=== PATIENT | male | born 1965 | race Caucasian/White ===

== ENCOUNTER 2020-08-14 07:29 | Outpatient (REF) | payer OTHER, SELFPAY ==
[2020-08-14 08:35] LABS: Hematocrit 24.6 % (42-52); Hemoglobin 7.4 g/dl (14.0-18.0); Mean Corpuscular HGB Conc 30.1 g/dl (31.0-36.0); Mean Corpuscular Hemoglobin 26.6 pg (27.0-33.0); Mean Corpuscular Volume 88.5 fL (80-98); Mean Platelet Volume 12.4 fL (9.4-12.4); Platelet Count 206 X10*3/uL (160-400); Red Blood Count 2.78 X10*6/uL (4.60-5.80); Red Cell Distribution Width 17.1 % (11.0-16.0); White Blood Count 8.1 X10*3/uL (4.8-10.8)
[2020-08-14 10:10] LABS: Alanine Aminotransferase 15 U/L (0-40); Albumin Level 2.8 g/dL (3.5-5.0); Alkaline Phosphatase 96 U/L (39-117); Anion Gap 12 (12-20); Aspartate Amino Transferase 12 U/L (5-37); Bilirubin Total 0.4 mg/dL (0.0-1.0); Blood Urea Nitrogen 34 mg/dL (9-16); Calcium 7.3 mg/dL (8.4-10.2); Carbon Dioxide 30 mmol/L (22-29); Chloride 99 mmol/L (96-108); Estimated Glomerular Filt Rate 9; Glucose Random 84 mg/dL (60-115); Potassium 3.8 mmol/L (3.3-5.1); Sodium 137 mmol/L (135-145); Total Protein 5.3 g/dL (6.5-8.0)
== END 2020-08-14 07:30 | disposition home or self-care (01) ==
LOC: HO.MMNH1L 07:29
PROVIDERS: Visit Provider Family Medicine
DX: Z86.73 Personal history of transient ischemic attack (TIA), and cerebral infarction without residual deficits (principal)
CPT/HCPCS: 36415; 80053; 85027

== ENCOUNTER 2020-08-18 10:36 | Outpatient (REF) | payer OTHER, SELFPAY ==
[2020-08-18 07:55] LABS: Hematocrit 24.8 % (42-52); Hemoglobin 7.5 g/dl (14.0-18.0); Mean Corpuscular HGB Conc 30.2 g/dl (31.0-36.0); Mean Corpuscular Hemoglobin 26.9 pg (27.0-33.0); Mean Corpuscular Volume 88.9 fL (80-98); Mean Platelet Volume 11.4 fL (9.4-12.4); Platelet Count 172 X10*3/uL (160-400); Red Blood Count 2.79 X10*6/uL (4.60-5.80); Red Cell Distribution Width 17.7 % (11.0-16.0); White Blood Count 6.6 X10*3/uL (4.8-10.8)
[2020-08-18 09:06] LABS: Anion Gap 13 (12-20); Blood Urea Nitrogen 25 mg/dL (9-16); Calcium 7.4 mg/dL (8.4-10.2); Carbon Dioxide 28 mmol/L (22-29); Chloride 101 mmol/L (96-108); Estimated Glomerular Filt Rate 11; Glucose Random 65 mg/dL (60-115); Potassium 3.3 mmol/L (3.3-5.1); Sodium 139 mmol/L (135-145)
== END 2020-08-18 10:37 | disposition home or self-care (01) ==
LOC: HO.MMNH1L 10:36
PROVIDERS: Visit Provider Family Medicine
DX: I63.9 Cerebral infarction, unspecified (principal)
CPT/HCPCS: 36415; 80048; 85027

== ENCOUNTER 2020-08-25 00:36 | Outpatient (REF) | payer OTHER, SELFPAY ==
[2020-08-25 08:09] LABS: Hematocrit 26.5 % (42-52); Hemoglobin 7.9 g/dl (14.0-18.0); Mean Corpuscular HGB Conc 29.8 g/dl (31.0-36.0); Mean Corpuscular Hemoglobin 26.5 pg (27.0-33.0); Mean Corpuscular Volume 88.9 fL (80-98); Mean Platelet Volume 10.8 fL (9.4-12.4); Platelet Count 129 X10*3/uL (160-400); Red Blood Count 2.98 X10*6/uL (4.60-5.80); Red Cell Distribution Width 17.3 % (11.0-16.0); White Blood Count 6.3 X10*3/uL (4.8-10.8)
[2020-08-25 09:03] LABS: Anion Gap 13 (12-20); Blood Urea Nitrogen 25 mg/dL (9-16); Calcium 7.1 mg/dL (8.4-10.2); Carbon Dioxide 29 mmol/L (22-29); Chloride 101 mmol/L (96-108); Estimated Glomerular Filt Rate 9; Glucose Random 89 mg/dL (60-115); Potassium 3.2 mmol/L (3.3-5.1); Sodium 140 mmol/L (135-145)
== END 2020-08-25 00:37 | disposition home or self-care (01) ==
LOC: HO.MMNH1L 00:36
PROVIDERS: Visit Provider Family Medicine
DX: Z86.73 Personal history of transient ischemic attack (TIA), and cerebral infarction without residual deficits (principal)
CPT/HCPCS: 36415; 80048; 85027

== ENCOUNTER 2020-09-01 01:07 | Outpatient (REF) | payer OTHER, SELFPAY ==
[2020-09-01 06:50] LABS: Hematocrit 26.3 % (42-52); Mean Corpuscular HGB Conc 30.4 g/dl (31.0-36.0); Mean Corpuscular Hemoglobin 27.1 pg (27.0-33.0); Mean Corpuscular Volume 89.2 fL (80-98); Mean Platelet Volume 10.5 fL (9.4-12.4); Platelet Count 156 X10*3/uL (160-400); Red Blood Count 2.95 X10*6/uL (4.60-5.80); Red Cell Distribution Width 17.1 % (11.0-16.0); White Blood Count 5.8 X10*3/uL (4.8-10.8)
[2020-09-01 08:42] LABS: Anion Gap 13 (12-20); Blood Urea Nitrogen 21 mg/dL (9-16); Carbon Dioxide 29 mmol/L (22-29); Chloride 99 mmol/L (96-108); Estimated Glomerular Filt Rate 10; Glucose Random 84 mg/dL (60-115); Potassium 3.2 mmol/L (3.3-5.1); Sodium 138 mmol/L (135-145)
[2020-09-01 08:53] LABS: Calcium 7.2 mg/dL (8.4-10.2)
== END 2020-09-01 01:08 | disposition home or self-care (01) ==
LOC: HO.MMNH1L 01:07
PROVIDERS: Visit Provider Family Medicine
DX: Z86.73 Personal history of transient ischemic attack (TIA), and cerebral infarction without residual deficits (principal)
CPT/HCPCS: 36415; 80048; 85027

== ENCOUNTER 2020-09-04 05:37 | Inpatient (IN) | payer OTHER, SELFPAY ==
[2020-09-04] VITALS (11 sets, daily range): BP systolic 132–195; BP diastolic 64–109; PULSE 65–86; RESP 10–20; TEMP 35.3–37.1; O2SAT 90–98; BMI 25.0
--- NOTE | 2020-09-04 | ECG_ITS ---
Test Reason : UNRESPONSIVE Blood Pressure : / mmHG Vent. Rate : 068 BPM Atrial Rate : 068 BPM P-R Int : 184 ms QRS Dur : 112 ms QT Int : 464 ms P-R-T Axes : 022 026 144 degrees QTc Int : 493 ms Normal sinus rhythm T wave abnormality, consider lateral ischemia Prolonged QT Abnormal ECG No previous ECGs available Referred By: Generic ED Physician Electronically Signed By:CLIFFORD EARL
--- NOTE | 2020-09-04 05:54 | ED_ITS ---
HPI - General Adult General Chief complaint: Altered Mental Status Stated complaint: unresponsive Time Seen by Provider: 09/04/20 05:54 Source: EMS Mode of arrival: EMS Limitations: altered mental status History of Present Illness HPI narrative: Patient comes to emergency room by EMS. Patient is coming from a residential, during the CONTINUING EDUCATION SPECIALIST rounds, patient was found to be diaphoretic and unresponsive. On EMS arrival, patient's blood sugar was 21. Patient given D10. Initially his blood sugar increased to 110 approximately. When the patient arrived to the emergency room patient is awake, alert, complaining of feeling cold. Blood sugar was checked once again, blood sugar dropped to 38. Of note, patient is due for dialysis this morning at 11:00 Related Data Allergies Allergy/AdvReac Type Severity Reaction Status Date / Time No Known Allergies Allergy Verified 09/04/20 06:30 Review of Systems 2 Review of Systems: Yes Unobtainable due to mental status (Severe hypoglycemia) PMFSH Past Medical History Medical History (Updated 09/04/20 @ 07:30 by Jessica Estes MD) Anemia BPH (benign prostatic hyperplasia) Chronic kidney disease on chronic dialysis Congenital malformation of heart CVA (cerebral vascular accident) Diabetes Hyperlipemia Hypertension Vertigo Physical Exam Vital Signs: Vital Signs: Last Vital Signs Temp 95.6 F L 09/04/20 05:49 Pulse 65 09/04/20 06:34 Resp 12 09/04/20 06:34 BP 162/97 H 09/04/20 06:34 Pulse Ox 98 09/04/20 06:34 Body Mass Index 25.0 Appearance: Alert. Oriented X2. Seems weak Eyes: Pupils equal, round and reactive to light. ENT: Pharynx normal. Neck: Normal inspection. Neck supple. No lymph nodes noted. No crepitus CVS: Normal heart rate and rhythm. Pulses normal. Normal S1 and S2 Respiratory: No respiratory distress. Breath sounds normal. No Wheezing. No rales Abdomen: Soft and nontender. No rigidity. No distention. good BS x4 Skin: Skin warm , slightly diaphoretic, pale Extremities: No lower extremity edema. Neuro: Oriented X 3. No motor deficit. No sensory deficit. Moving all extermities. No slurred speech. Course Course Course Narrative: Patient's blood sugar was initially 21, patient received D10 by EMS and this 50 on arrival. Initially patient's blood sugar increased to 237. Within 15 minutes, the blood sugar dropped to 78. Patient was given a 2nd dose of D50 and started on D10 drip Patient is currently on D10 drip, blood glucose 137 with patient is now more responsive. i discussed with the pt with Dr. Joyner, pt is being admitted for hypoglycemia, possible accidental insulin overdose. Patient is also due for dialysis this morning Medical Decision Making Lab Data Result diagrams: 09/04/20 06:05 09/04/20 06:05 Labs: Lab Results 09/04/20 09/04/20 09/04/20 Range/Units 05:42 05:52 06:05 WBC 7.0 (4.8-10.8) X10*3/uL RBC 3.11 L (4.60-5.80) X10*6/uL Hgb 8.7 L (14.0-18.0) g/dl Hct 28.1 L (42-52) % MCV 90.4 (80-98) fL MCH 28.0 (27.0-33.0) pg MCHC 31.0 (31.0-36.0) g/dl RDW 17.5 H (11.0-16.0) % Plt Count 156 L (160-400) X10*3/uL MPV 10.3 (9.4-12.4) fL Immature Gran % (Auto) 0.4 (0.0-0.4) % Neut % (Auto) 84.8 H (45-73) % Lymph % (Auto) 6.8 L (20-40) % [place] % (Auto) 5.3 (2-11) % Eos % (Auto) 2.1 (0-4) % Baso % (Auto) 0.6 (0-2) % Lymph # (Auto) 0.5 L (1.2-4.9) X10*3/uL [place] # (Auto) 0.4 (0.1-1.2) X10*3/uL Eos # (Auto) 0.2 (0.0-0.4) X10*3/uL Baso # (Auto) 0.0 (0.0-0.2) X10*3/uL Abs Immat Gran (auto) 0.03 (0.00-0.03) X10*3/uL Absolute Neuts (auto) 5.9 (2.0-8.3) X10*3/uL Absolute Nucleated RBC 0.000 (0.0-0.012) X10*3/uL Nucleated RBC % (auto) 0.0 (0.0-0.2) /100WBC Smear Tech's Comments VERIFIED Hold Blue Top Sodium (135-145) mmol/L Potassium (3.3-5.1) mmol/L Chloride (96-108) mmol/L Carbon Dioxide (22-29) mmol/L Anion Gap (12-20) BUN (9-16) mg/dL Creatinine (0.5-1.4) mg/dL Estim Creat Clear Calc Estimated GFR POC Glucose 38 L* 237 H (60-115) mg/dL Random Glucose (60-115) mg/dL Calcium (8.4-10.2) mg/dL Total Bilirubin (0.0-1.0) mg/dL AST (5-37) U/L ALT (0-40) U/L Alkaline Phosphatase (39-117) U/L Total Protein (6.5-8.0) g/dL Albumin (3.5-5.0) g/dL 09/04/20 09/04/20 09/04/20 Range/Units 06:05 06:05 06:11 WBC (4.8-10.8) X10*3/uL RBC (4.60-5.80) X10*6/uL Hgb (14.0-18.0) g/dl Hct (42-52) % MCV (80-98) fL MCH (27.0-33.0) pg MCHC (31.0-36.0) g/dl RDW (11.0-16.0) % Plt Count (160-400) X10*3/uL MPV (9.4-12.4) fL Immature Gran % (Auto) (0.0-0.4) % Neut % (Auto) (45-73) % Lymph % (Auto) (20-40) % [place] % (Auto) (2-11) % Eos % (Auto) (0-4) % Baso % (Auto) (0-2) % Lymph # (Auto) (1.2-4.9) X10*3/uL [place] # (Auto) (0.1-1.2) X10*3/uL Eos # (Auto) (0.0-0.4) X10*3/uL Baso # (Auto) (0.0-0.2) X10*3/uL Abs Immat Gran (auto) (0.00-0.03) X10*3/uL Absolute Neuts (auto) (2.0-8.3) X10*3/uL Absolute Nucleated RBC (0.0-0.012) X10*3/uL Nucleated RBC % (auto) (0.0-0.2) /100WBC Smear Tech's Comments Hold Blue Top SEE NOTE Sodium 138 (135-145) mmol/L Potassium 3.9 D (3.3-5.1) mmol/L Chloride 101 (96-108) mmol/L Carbon Dioxide 26 (22-29) mmol/L Anion Gap 15 (12-20) BUN 34 H D (9-16) mg/dL Creatinine 7.03 H* (0.5-1.4) mg/dL Estim Creat Clear Calc 11.1 Estimated GFR 8 POC Glucose 111 (60-115) mg/dL Random Glucose 225 H D (60-115) mg/dL Calcium 7.8 L D (8.4-10.2) mg/dL Total Bilirubin 0.4 (0.0-1.0) mg/dL AST 17 D (5-37) U/L ALT 13 (0-40) U/L Alkaline Phosphatase 75 D (39-117) U/L Total Protein 5.7 L (6.5-8.0) g/dL Albumin 3.0 L (3.5-5.0) g/dL ECG Data Attestation: I personally reviewed and interpreted this ECG as follows: (Sinus rhythm, heart rate 68, no ST segment depression or elevation, no T-wave i nversion, prolonged QTC, 493) Critical Care Time Critical Care Time Total Critical Care Time: 45 Discharge Plan Discharge Clinical Impression: Hypoglycemia Patient Disposition: Admitted As Inpatient
--- NOTE | 2020-09-04 05:59 | PC.NURSE ---
Initial POC 37 mg/dl. After 1 amp of D50, POC noted to be 237. Per MD, plan for POC q 15.
[2020-09-04 06:15] LABS: Basophils Percent Auto 0.6 % (0-2); Eosinophils Absolute Auto 0.2 X10*3/uL (0.0-0.4); Eosinophils Percent Auto 2.1 % (0-4); Hematocrit 28.1 % (42-52); Hemoglobin 8.7 g/dl (14.0-18.0); Imm Gran Abs Auto 0.03 X10*3/uL (0.00-0.03); Imm Gran Pct Auto 0.4 % (0.0-0.4); Lymphocytes Absolute Auto 0.5 X10*3/uL (1.2-4.9); Lymphocytes Percent Auto 6.8 % (20-40); MANUAL DIFF FLAG SCAN; Mean Corpuscular Volume 90.4 fL (80-98); Mean Platelet Volume 10.3 fL (9.4-12.4); Monocytes Absolute Auto 0.4 X10*3/uL (0.1-1.2); Monocytes Percent Auto 5.3 % (2-11); Neutrophils Absolute Auto 5.9 X10*3/uL (2.0-8.3); Neutrophils Percent Auto 84.8 % (45-73); Platelet Count 156 X10*3/uL (160-400); Red Blood Count 3.11 X10*6/uL (4.60-5.80); Red Cell Distribution Width 17.5 % (11.0-16.0); SCAN SMEAR FLAG 1
[2020-09-04 06:16] LABS: Glucose, Whole Blood 111 mg/dL (60-115)
[2020-09-04 06:16] LABS: Glucose, Whole Blood 38 mg/dL (60-115)
[2020-09-04 06:16] LABS: Glucose, Whole Blood 237 mg/dL (60-115)
[2020-09-04 06:31] LABS: SLIDE REVIEW VERIFIED
--- NOTE | 2020-09-04 06:32 | PC.NURSE ---
POC noted to be 79 mg/dl. Per MD, verbal order for second amp of D50. Vee for D10 infusion to maintain blood sugar WNL.
--- NOTE | 2020-09-04 06:33 | PC.NURSE ---
POC noted to be 79 mg/dl. Per MD, verbal order for second amp of D50. Plan for D10 infusion to maintain blood sugar WNL.
[2020-09-04] MEDS: Dextrose 10 % 1,000 ML 75 ML IVCONT ×2 (06:35→18:51)
--- NOTE | 2020-09-04 06:44 | PC.NURSE ---
After second amp, POC 175 mg/dl. D10 infusing per JUN. Pt resting in bed but arousable to verbal stimuli. VSS at this time. Pt provided with bedside urinal. Call gibbs within reach, continue to monitor. Paperwork from [facility] included pts DNI, copies made and placed in chart.
--- NOTE | 2020-09-04 06:49 | PC.NURSE ---
After second amp, POC 175 mg/dl. D10 infusing per JUN. Pt resting in bed but arousable to verbal stimuli. VSS at this time. Pt provided with bedside urinal. Call gibbs within reach, continue to monitor. Paperwork from [facility] included pts MOLST form, per MOLST, resuscitate and intubate, copies made and placed in chart.
[2020-09-04 06:54] LABS: Alanine Aminotransferase 13 U/L (0-40); Alkaline Phosphatase 75 U/L (39-117); Anion Gap 15 (12-20); Aspartate Amino Transferase 17 U/L (5-37); Bilirubin Total 0.4 mg/dL (0.0-1.0); Blood Urea Nitrogen 34 mg/dL (9-16); Calcium 7.8 mg/dL (8.4-10.2); Carbon Dioxide 26 mmol/L (22-29); Chloride 101 mmol/L (96-108); Creatinine Clr Calc Pharmacy 11.1; Estimated Glomerular Filt Rate 8; Glucose Random 225 mg/dL (60-115); Potassium 3.9 mmol/L (3.3-5.1); Sodium 138 mmol/L (135-145); Total Protein 5.7 g/dL (6.5-8.0)
[2020-09-04 07:29] LABS: Glucose, Whole Blood 137 mg/dL (60-115)
[2020-09-04] MEDS: NIFEdipine ER 60 MG TAB.ER.24 PO (09:06)
[2020-09-04] MEDS: carvediloL 12.5 MG TABLET PO (09:07)
--- NOTE | 2020-09-04 09:40 | PC.NURSE ---
sleeping, nad, awaiting hospitalist
[2020-09-04 10:54] LABS: Glucose, Whole Blood 95 mg/dL (60-115)
[2020-09-04 10:54] LABS: Glucose, Whole Blood 79 mg/dL (60-115)
[2020-09-04 10:54] LABS: Glucose, Whole Blood 175 mg/dL (60-115)
[2020-09-04 10:54] LABS: Glucose, Whole Blood 104 mg/dL (60-115)
[2020-09-04 10:54] LABS: Glucose, Whole Blood 123 mg/dL (60-115)
--- NOTE | 2020-09-04 11:00 | PC.NURSE ---
glucose trending down w d10 at 75ml/h, increased to 100ml/h, hospitalist at bedside
[2020-09-04 11:20] LABS: COVID-19 Test Negative (Negative)
--- NOTE | 2020-09-04 11:33 | PM.IMHP ---
History of Present Illness Date of Service: 09/04/20 Chief Complaint: symtomatic hypoglycemia With a past medical history of diabetes mellitus on insulin, end-stage renal disease on dialysis Tuesday, anemia, hypertension, CVA with recent hospitalization to [facility] for reported history, major depressive disorder, hyperlipidemia, vertigo who presented to [facility]'s Emergency Room brought in by ambulance from [facility] due to unresponsiveness. The patient himself does not have any recollection of the events that have transpired over the roughly last 12 hours and so history is obtained from actuarial technician notes and ED provider documentation. It appears that patient was found in an unresponsive/minimally responsive state at the [facility] at which point paramedics were called. Per EMS records, upon arrival to the [facility] facility the patient was groaning and beginning to pop sure. His pupils were nonreactive and patient was diaphoretic. Reportedly he had gone to bed around 23:00 without any issues. A point of care was checked and revealed to be 21. He was placed and he was administered D10 through the IV, 15 g initially. Initially his sugars improved to 153 only to be subsequently down trending to 73. As the patient's sugars improved so did his mental status but he remained not at baseline. Upon arrival to the ED was noted to be 50. This subsequently improved to 237 but within 15 minutes his sugars dropped down to 78. He was given a 2nd dose of D50 and D10 infusion was administered and admission was requested. At the time that I was seen the patient he is awake and alert but reports being very sleepy and tired. He reports eating a his normal meal yesterday. His sugars on the D10 drip which had remained in the 130 range are now beginning to decrease to the 90s. Patient will be admitted for symptomatic hypoglycemia. Review of Systems Review of Systems: General - +weak and tired HEENT -denies blurred vision, denies headache, denies sore throat Cardiovascular - denies chest pain or palpitations, denies edema Respiratory - denies shortness of breath, coughing, wheezing Gastrointestinal - denies abdominal pain, nausea, vomiting, diarrhea - denies flank pain, denies dysuria, denies frequency or urgency Musculoskeletal - denies back pain, denies hip pain, denies knee pain, denies shoulder pain Neurological - denies any focal weakness or numbness Skin, denies any bruising or redness Psychiatric - denies any suicidal ideation, hallucinations, homicidal ideation Endocrinology - denies intolerance to hot / cold temperatures [facility] Medical History (Updated 09/04/20 @ 11:42 by Amor Jiang MD) Anemia BPH (benign prostatic hyperplasia) Chronic kidney disease on chronic dialysis Congenital malformation of heart CVA (cerebral vascular accident) Diabetes Hyperlipemia Hypertension Vertigo Social History Advance Directives: No Advance Directives Information Provided: No Meds Allergies Allergy/AdvReac Type Severity Reaction Status Date / Time No Known Allergies Allergy Verified 09/04/20 06:30 Active Medications: Current Medications Generic Name Dose Route Start Last Admin Trade Name Freq PRN Reason Stop Dose Admin Dextrose 1,000 mls @ 75 mls/hr 09/04/20 06:30 09/04/20 06:35 D10 IVCONT 75 mls/hr .[id number] NUVIA Administration Pharmacy Consult 1 each 09/04/20 10:23 Consult Rx Perform Med Rec MISCELLANE ONCE PRN Consult order Home Medications Medication Instructions Recorded Confirmed Last Taken Type calcium carbonate 1 tab PO TID 09/04/20 09/04/20 Unknown History carvedilol 25 mg PO BID 09/04/20 09/04/20 Unknown History dulaglutide [Trulicity] 1 mg SUBCUT QWEEK 09/04/20 09/04/20 Unknown History ergocalciferol (vitamin D2) 1 cap PO QWEEK 09/04/20 09/04/20 Unknown History ibuprofen 400 mg PO Q6H PRN 09/04/20 09/04/20 Unknown History insulin glargine [Lantus Solostar 20 unit SUBCUT BEDTIME 09/04/20 09/04/20 Unknown History U-100 Insulin] magnesium hydroxide [Milk of 30 ml PO DAILY PRN 09/04/20 09/04/20 Unknown History Magnesia] nifedipine 60 mg PO DAILY 09/04/20 09/04/20 Unknown History rosuvastatin 20 mg PO BEDTIME 09/04/20 09/04/20 Unknown History sertraline 50 mg PO DAILY 09/04/20 09/04/20 Unknown History tamsulosin 0.4 mg PO BEDTIME 09/04/20 09/04/20 Unknown History trazodone 50 mg PO BEDTIME 09/04/20 09/04/20 Unknown History Physical Exam Vital Signs and Narrative: Vital Signs: Last Vital Signs Temp 98.0 F 09/04/20 10:32 Pulse 70 09/04/20 10:32 Resp 10 L 09/04/20 10:32 BP 179/91 H 09/04/20 10:32 Pulse Ox 98 09/04/20 10:32 Body Mass Index 25.0 Const: Other: Constitutional - Sleepy but easily arousable. Able to obey basic commands. Oriented to place. Eyes - PERRLA, EOMI Cardiovascular - S1S2, RRR, No edema Respiratory - Normal lung expansion, Normal respiratory effort, No respiratory distress, CTA bilaterally Gastrointestinal - NT / ND; +BS; No rebound or guarding - No CVA tenderness Extremities - no calf tenderness bilaterally, no swelling Musculoskeletal - Normal inspection, normal ROM Skin - Warm/Dry Neurological - Awake and alert; oriented to place and time Psychological - Appropriate affect Results Labs CBC and Chem 7: 09/04/20 06:05 09/04/20 06:05 Labs: Laboratory Results - last 24 hr 09/04/20 09/04/20 09/04/20 05:42 05:52 06:05 MCV 90.4 MCH 28.0 MCHC 31.0 RDW 17.5 H Plt Count 156 L MPV 10.3 Immature Gran % (Auto) 0.4 Neut % (Auto) 84.8 H Lymph % (Auto) 6.8 L [place] % (Auto) 5.3 Eos % (Auto) 2.1 Baso % (Auto) 0.6 Lymph # (Auto) 0.5 L [place] # (Auto) 0.4 Eos # (Auto) 0.2 Baso # (Auto) 0.0 Abs Immat Gran (auto) 0.03 Absolute Neuts (auto) 5.9 Absolute Nucleated RBC 0.000 Nucleated RBC % (auto) 0.0 Smear Tech's Comments VERIFIED Hold Blue Top Anion Gap Estim Creat Clear Calc Estimated GFR POC Glucose 38 L* 237 H Random Glucose Calcium Total Bilirubin AST ALT Alkaline Phosphatase Total Protein Albumin COVID-19 (JENI) COVID-19 Clin Com 09/04/20 09/04/20 09/04/20 06:05 06:05 06:11 MCV MCH MCHC RDW Plt Count MPV Immature Gran % (Auto) Neut % (Auto) Lymph % (Auto) [place] % (Auto) Eos % (Auto) Baso % (Auto) Lymph # (Auto) [place] # (Auto) Eos # (Auto) Baso # (Auto) Abs Immat Gran (auto) Absolute Neuts (auto) Absolute Nucleated RBC Nucleated RBC % (auto) Smear Tech's Comments Hold Blue Top SEE NOTE Anion Gap 15 Estim Creat Clear Calc 11.1 Estimated GFR 8 POC Glucose 111 Random Glucose 225 H D Calcium 7.8 L D Total Bilirubin 0.4 AST 17 D ALT 13 Alkaline Phosphatase 75 D Total Protein 5.7 L Albumin 3.0 L COVID-19 (JENI) COVID-Joyent 09/04/20 09/04/20 09/04/20 06:26 06:43 07:25 MCV MCH MCHC RDW Plt Count MPV Immature Gran % (Auto) Neut % (Auto) Lymph % (Auto) [place] % (Auto) Eos % (Auto) Baso % (Auto) Lymph # (Auto) [place] # (Auto) Eos # (Auto) Baso # (Auto) Abs Immat Gran (auto) Absolute Neuts (auto) Absolute Nucleated RBC Nucleated RBC % (auto) Smear Tech's Comments Hold Blue Top Anion Gap Estim Creat Clear Calc Estimated GFR POC Glucose 79 175 H 137 H Random Glucose Calcium Total Bilirubin AST ALT Alkaline Phosphatase Total Protein Albumin COVID-19 (JENI) [employer] 09/04/20 09/04/20 09/04/20 08:17 10:09 10:47 MCV MCH MCHC RDW Plt Count MPV Immature Gran % (Auto) Neut % (Auto) Lymph % (Auto) [place] % (Auto) Eos % (Auto) Baso % (Auto) Lymph # (Auto) [place] # (Auto) Eos # (Auto) Baso # (Auto) Abs Immat Gran (auto) Absolute Neuts (auto) Absolute Nucleated RBC Nucleated RBC % (auto) Smear Tech's Comments Hold Blue Top Anion Gap Estim Creat Clear Calc Estimated GFR POC Glucose 123 H 104 Random Glucose Calcium Total Bilirubin AST ALT Alkaline Phosphatase Total Protein Albumin COVID-19 (JENI) Negative [employer] See Note 09/04/20 10:49 MCV MCH MCHC RDW Plt Count MPV Immature Gran % (Auto) Neut % (Auto) Lymph % (Auto) [place] % (Auto) Eos % (Auto) Baso % (Auto) Lymph # (Auto) [place] # (Auto) Eos # (Auto) Baso # (Auto) Abs Immat Gran (auto) Absolute Neuts (auto) Absolute Nucleated RBC Nucleated RBC % (auto) Smear Tech's Comments Hold Blue Top Anion Gap Estim Creat Clear Calc Estimated GFR POC Glucose 95 Random Glucose Calcium Total Bilirubin AST ALT Alkaline Phosphatase Total Protein Albumin COVID-19 (JENI) COVID-19 Clin Com Assessment and Plan (1) Hypoglycemia: Status: Acute (2) ESRD (end stage renal disease): Status: Acute This is a 54 yo M with a PMH of ESRD, DM on insulin, HTN, reported recent CVA who presents was found to be unresponsive at [facility]. He was noted to be severely hypoglycemic in the ED which initially improved, but started to drop again and as such he is being admitted. 1. Symptomatic hypoglycemia 1a. Diabetes Mellitus Patient received D50 x 1 in the ED and subsequently started on D10 infusion. Despite the D10 infusion, his sugars continue to drop WIll increase the rate of D10 He is on long-acting insulin at [facility] and also weekly Triseba Continue with POC q2 hours Suspect that his hypoglycemia is related to long acting insulin. It is unclear if his dose was recently changed. Pt endorses eating normal meals yesterday. Hold insulin 2. ESRD on HD - [facility] nephrology consult, dialysis per their recs 3. Uncontrolled HTN given his home antihpertensives this AM will see his BP post-dialysis and adjust meds accordingly 4. ? Recent CVA -- per reports doesnt appear to be on an anti-platelet agent, unclear why continue statin 5. Anemia likely of chronic disease h/h appears to be at about his baseline monitor continue other baseline meds Full Code DVT pptx, low risk -- will use mechanical and early ambulation
[2020-09-04 12:04] LABS: Glucose, Whole Blood 99 mg/dL (60-115)
--- NOTE | 2020-09-04 13:06 | PC.NURSE ---
PT BROUGHT TO DIALYSIS
--- NOTE | 2020-09-04 13:46 | PC.NURSE ---
pt up to dialysis, report given to rn
[2020-09-04 14:42] LABS: Glucose, Whole Blood 100 mg/dL (60-115)
[2020-09-04 18:46] LABS: Glucose, Whole Blood 98 mg/dL (60-115)
[2020-09-04] MEDS: 0.9 % Sodium Chloride Flush 3 ML SYRINGE IVFLUSH (18:52)
[2020-09-04 20:16] LABS: Glucose, Whole Blood 139 mg/dL (60-115)
[2020-09-05] VITALS (10 sets, daily range): BP systolic 127–152; BP diastolic 62–80; PULSE 75–81; RESP 15–18; TEMP 36.6–37.1; O2SAT 96–98
[2020-09-05 00:10] LABS: Glucose, Whole Blood 208 mg/dL (60-115)
[2020-09-05 02:01] LABS: Glucose, Whole Blood 200 mg/dL (60-115)
[2020-09-05 04:03] LABS: Glucose, Whole Blood 178 mg/dL (60-115)
[2020-09-05 04:07] LABS: Glucose, Whole Blood 189 mg/dL (60-115)
[2020-09-05 06:01] LABS: Glucose, Whole Blood 164 mg/dL (60-115)
--- NOTE | 2020-09-05 06:47 | PC.NURSE ---
late entry; 09/04 patient arrived to unit at 1820 from dialysis. Patient alert and oriented but vague, kept asking about his cellphone, concerned it is not with his belongings. Per dialysis, patient did not have belongings when transferred from ed to dialysis. [place] [id number] cage maker called nursing skilled facility which patient came from, and verified with facility staff that patient's cell phone is back at the facility in his room. Patient was updated with this information that his cellphone is back at the facility he currently resides.
[2020-09-05 08:15] LABS: Glucose, Whole Blood 137 mg/dL (60-115)
[2020-09-05] MEDS: Sertraline HCL 50 MG TABLET PO (08:23)
[2020-09-05] MEDS: carvediloL 12.5 MG TABLET 25 MG PO ×2 (08:23→20:21)
[2020-09-05] MEDS: NIFEdipine ER 60 MG TAB.ER.24 PO (08:34)
[2020-09-05] MEDS: Atorvastatin Calcium 80 MG TABLET PO (08:34)
--- NOTE | 2020-09-05 09:14 | MHC.CM.PN ---
Addendum entered by Frida Girard 09/05/20 15:38: [facility] as well as all other area acute rehabs declined pts referral. CM met with him again to review the list of SNFs. Per his request a referral was made to [facility]. [facility] was offering a bed however they do not have a HD slot available over the weekend. CM will obtain more choices from pt and broaden referral. If pt is unable to find alternate STR, [facility] can review again on Tuesday. Addendum entered by Frida Girard 09/05/20 11:08: PT recommending acute rehab. Pt reports [facility] is preferred facility. Referral sent Original Note: CM MET WITH PT WHO REPORTS HE WAS TRANSFERRED FROM [facility] WHERE HE WAS RECEIVING STR. PT REPORTS PRIOR TO HIS STR ADMISSION, HE LIVED ALONE, HAD NO SERVICES AND NO DME. PT REPORTS HE DOES NOT WANT TO RETURN TO [facility]. PT WILL CONSIDER STR AT AN ALTERNATE FACILITY BUT WOULD LIKE TO RETURN HOME IF THAT IS A SAFE PLAN. PT WILL REQUIRE A PT EVAL FOR DC PLANNING. A LIST OF POTENTIAL STR FACILITIES WAS PROVIDED AND A REFERRAL WILL BE PLACED BASED ON PTS IDENTIFIED PREFERENCES. PT IS UNSURE IF HE HAS A HCP, CM MESSAGED [facility] TO DETERMINE IF THEY HAVE ONE ON FILE. PT REPORTS HIS PCP IS [facility]. CURRENTLY, DC PLAN IS TBD PENDING PT EVAL. STR VS HOME WITH SERVICES. TRANSPORTATION TBD PENDING DISPOSITION.
[2020-09-05 10:19] LABS: Glucose, Whole Blood 140 mg/dL (60-115)
--- NOTE | 2020-09-05 10:28 | PM.DS ---
DS: Providers Provider Date of admission: 09/04/20 11:31 Primary care physician: Daniel Campos MD Consults: 09/04/20 11:43 Consult to Nephrology Routine Consulting Provider: Dayne Marr Reason for consultation: ESRD TTHS, due for dialysis today DS: Diagnosis Discharge Diagnosis (1) Hypoglycemia: Status: Acute (2) ESRD (end stage renal disease): Status: Acute DS: Medications Discharge Medications Home Medications: Home Medications Medication Instructions Recorded Confirmed calcium carbonate 1 tab PO TID 09/04/20 09/04/20 carvedilol 25 mg PO BID 09/04/20 09/04/20 dulaglutide [Trulicity] 1 mg SUBCUT QWEEK 09/04/20 09/04/20 ergocalciferol (vitamin D2) 1 cap PO QWEEK 09/04/20 09/04/20 ibuprofen 400 mg PO Q6H PRN 09/04/20 09/04/20 insulin glargine [Lantus Solostar 20 unit SUBCUT BEDTIME 09/04/20 09/04/20 U-100 Insulin] magnesium hydroxide [Milk of 30 ml PO DAILY PRN 09/04/20 09/04/20 Magnesia] nifedipine 60 mg PO DAILY 09/04/20 09/04/20 rosuvastatin 20 mg PO BEDTIME 09/04/20 09/04/20 sertraline 50 mg PO DAILY 09/04/20 09/04/20 tamsulosin 0.4 mg PO BEDTIME 09/04/20 09/04/20 trazodone 50 mg PO BEDTIME 09/04/20 09/04/20 DS: Summary Hospital Course Hospital Course: From H&P 09/04 This is a 54 year old male With a past medical history of diabetes mellitus on insulin, end-stage renal disease on dialysis Tuesday, anemia, hypertension, CVA with recent hospitalization to [facility] for reported history, major depressive disorder, hyperlipidemia, vertigo who presented to [facility]'s Emergency Room brought in by ambulance from [facility] due to unresponsiveness. The patient himself does not have any recollection of the events that have transpired over the roughly last 12 hours and so history is obtained from screening unit registered nurse notes and ED provider documentation. It appears that patient was found in an unresponsive/minimally responsive state at the [facility] at which point paramedics were called. Per EMS records, upon [facility] facility the patient was groaning and beginning to pop sure. His pupils were nonreactive and patient was diaphoretic. Reportedly he had gone to bed around 23:00 without any issues. A point of care was checked and revealed to be 21. He was placed and he was administered D10 through the IV, 15 g initially. Initially his sugars improved to 153 only to be subsequently down trending to 73. As the patient's sugars improved so did his mental status but he remained not at baseline. Upon arrival to the ED was noted to be 50. This subsequently improved to 237 but within 15 minutes his sugars dropped down to 78. He was given a 2nd dose of D50 and D10 infusion was administered and admission was requested. At the time that I was seen the patient he is awake and alert but reports being very sleepy and tired. He reports eating a his normal meal yesterday. His sugars on the D10 drip which had remained in the 130 range are now beginning to decrease to the 90s. Patient will be admitted for symptomatic hypoglycemia. Symptomatic hypoglycemia Patient's Trulicity and Lantus were held on admission. He was continued on D10 drip. His blood sugar was checked Q 2 hours. Blood sugar remained under 100 until around 20:00 and then began rebounding and remained stable overnight, there were no recurrent episodes of hypoglycemia. This morning his D10 drip was discontinued. He is tolerating a full diabetic diet and his blood sugars have remained stable off of d10 drip. It is unclear what precipitated his hypoglycemia as the patient reports no change in his diet or dose of medications. Trulicity and Lantus will be held on discharge. Blood sugar should be monitored with meals and at bedtime. Use a sliding scale for coverage. lantus and trulicity can be re-introduced as needed. Time Spent with Patient Time attestation: Total time spent providing and/or coordinating discharge services: Discharge coordination time: Greater than 30 minutes Quality: Stroke Does the patient have a stroke diagnosis?: Yes Physical Exam Vital Signs: Vital Signs: Last Vital Signs Temp 98.5 F 09/05/20 08:00 Pulse 79 09/05/20 09:25 Resp 16 09/05/20 08:00 BP 139/72 09/05/20 09:25 Pulse Ox 97 09/05/20 08:00 Body Mass Index 25.0 Const: General: comfortable, no acute distress, alert and awake Nutritional Appearance: well nourished HENMT: Head: Yes normocephalic and Yes atraumatic Eyes: Sclerae: sclerae normal Chest: Chest palpation & inspection: normal inspection of the chest Resp: Effort & Inspection: normal respiratory effort, able to speak in complete sentences and no respiratory distress Cardio: Rate: regular rate Rhythm: regular rhythm GI: Palpation (GI): Soft to palpation and nontender Neuro: Cranial nerves: Yes CN's II-XII intact bilaterally and Yes Bilaterally intact EOM present DS: Data Data Completed and Pending Labs on day of discharge: Laboratory Results - last 24 hr 09/04/20 09/04/20 09/04/20 06:26 06:43 08:17 POC Glucose 79 175 H 123 H COVID-19 ([facility]ENI) COVID-19 Clin Com 09/04/20 09/04/20 09/04/20 10:09 10:47 10:49 POC Glucose 104 95 COVID-19 (JENI) Negative COVID-19 Clin Com See Note 09/04/20 09/04/20 09/04/20 12:01 14:37 18:42 POC Glucose 99 100 98 COVID-19 ([facility]ENI) COVID-19 Clin Com 09/04/20 09/04/20 09/05/20 20:04 22:05 00:06 POC Glucose 139 H 189 H 208 H COVID-19 ([facility]I) COVID-19 Clin Com 09/05/20 09/05/20 09/05/20 01:57 03:58 05:57 POC Glucose 200 H 178 H 164 H COVID-19 ([facility]ENI) COVID-19 Clin Com 09/05/20 09/05/20 08:10 10:14 POC Glucose 137 H 140 H COVID-19 (JENI) COVID-19 Clin Com Discharge Plan Discharge Patient Disposition: er SNF Discharge Diagnosis: Hypoglycemia ESRD Referrals: Daniel Campos MD [Primary Care Provider] - 1 Week Discharge Medications: New insulin lispro [Humalog U-100 Insulin] 100 unit/mL solution See Protocol sliding scale dose subcut USEASDIRECTD Qty: 10 RF: 0 Continued carvedilol 12.5 mg tablet 25 mg PO BID RF: 0 trazodone 50 mg tablet 50 mg PO BEDTIME RF: 0 calcium carbonate 600 mg calcium (1,500 mg) tablet 1 tab PO TID RF: 0 sertraline 25 mg tablet 50 mg PO DAILY RF: 0 ergocalciferol (vitamin D2) 1,250 mcg (50,000 unit) capsule 1 cap PO QWEEK RF: 0 nifedipine 60 mg tablet extended release 60 mg PO DAILY RF: 0 tamsulosin 0.4 mg Capsule 0.4 mg PO BEDTIME RF: 0 rosuvastatin 20 mg Tablet 20 mg PO BEDTIME RF: 0 magnesium hydroxide [Milk of Magnesia] 400 mg/5 mL Suspension 30 ml PO DAILY PRN (Reason: Constipation) RF: 0 Discontinued Lantus Solostar U-100 Insulin 100 unit/mL (3 mL) insulin pen 20 unit subcut BEDTIME RF: 0 Trulicity 1.5 mg/0.5 mL pen injector 1 mg subcut QWEEK RF: 0 ibuprofen 400 mg Tablet 400 mg PO Q6H PRN (Reason: Pain) RF: 0 Activity on Discharge: As tolerated Stand Alone Forms: Patient Portal Discharge page Care Plan Goals: see below Health Concerns: Hypoglycemia ESRD Plan of Treatment: Hypoglycemia - your lantus and trulicity have been stopped for now. these can slowly be reintroduced as needed. check blood sugar with meals and before bed and use sliding scale for coverage for now. Assessment: see dicharge summary
--- NOTE | 2020-09-05 10:43 | P.CONNP_ITS ---
History of Present Illness Reason for Consult Consult date: 09/05/20 Chief Complaint Chief complaint: Symptomatic hypoglycemia History of Present Illness Narrative: With a past medical history of diabetes mellitus on insulin, end- stage renal disease on dialysis Tuesday, anemia, hypertension, CVA with recent hospitalization to [facility] for reported history, major depressive disorder, hyperlipidemia, vertigo who presented to [facility]'s Emergency Room brought in by ambulance from [facility] due to unresponsiveness. The patient himself does not have any recollection of the events that have transpired over the roughly last 12 hours and so history is obtained from tennis professional notes and ED provider documentation. It appears that patient was found in an unresponsive/minimally responsive state at the [facility] at which point paramedics were called. Per EMS records, upon arrival to the [facility] the patient was groaning and beginning to pop sure. His pupils were nonreactive and patient was diaphoretic. Reportedly he had gone to bed around 23:00 without any issues. A point of care was checked and revealed to be 21. He was placed and he was administered D10 through the IV, 15 g initially. Initially his sugars improved to 153 only to be subsequently down trending to 73. As the patient's sugars improved so did his mental status but he remained not at baseline. Upon arrival to the ED was noted to be 50. Nephrology has been consulted to assist in his clinical care during his current hospital stay. Review of Systems Review of Systems Yes all other systems are reviewed and are negative PMF Past Medical History Medical History (Updated 09/04/20 @ 11:42 by Amor Jiang MD) Anemia BPH (benign prostatic hyperplasia) Chronic kidney disease on chronic dialysis Congenital malformation of heart CVA (cerebral vascular accident) Diabetes Hyperlipemia Hypertension Vertigo Social History Social History Household Members: Other Household Members Other:: presents from [facility] facility Housing: [facility] Do you presently have visiting nurse or other home services: No (from [facility] facility) Patient Tobacco Use Status: Never used Tobacco Use of substances other than those prescribed or required for medical reasons: No Currently Displaying Signs/Symptoms of Drug Intoxication Withdrawal: No Have you been hit, kicked, punched, or otherwise hurt by someone within the past year? If so, by whom?: No Do you feel safe in your current relationship?: No Current Relationship Is there a partner from a previous relationship who is making you feel unsafe now?: No Are you made to feel afraid or neglected: No Advance Directives: No Advance Directives Information Provided: No Do you have thoughts of harming others: None Do you have a plan to hurt others: No Plan Recently lost weight without trying: Unsure Nutrition Risks: No Nutritional Risk service: No Current occupational status: employed Meds Allergies Allergy/AdvReac Type Severity Reaction Status Date / Time No Known Allergies Allergy Verified 09/04/20 06:30 Active Medications: Current Medications Generic Name Dose Route Start Last Admin Trade Name Freq PRN Reason Stop Dose Admin Acetaminophen 650 mg 09/04/20 18:18 Acetaminophen 325 Mg Tablet PO Q6H PRN Pain, Mild (Pain Scale 1-3) Atorvastatin Calcium 80 mg 09/05/20 09:00 09/05/20 08:34 Atorvastatin Calcium 80 Mg Tablet PO 80 mg DAILY [facility] Administration Carvedilol 25 mg 09/05/20 09:00 09/05/20 08:23 Carvedilol 12.5 Mg Tablet PO 25 mg BID [facility] Administration Protocol Heparin Sodium (Porcine) 5,000 unit 09/04/20 16:45 09/04/20 18:31 Heparin Sodium,Porcine 5,000 Unit/Ml Vial INTRACATH Not Given [facility]@[address] [place] [address] Nifedipine 60 mg 09/05/20 09:00 09/05/20 08:34 Nifedipine Er 60 Mg Tab.Er.24 PO 60 mg DAILY [facility] Administration Pharmacy Consult 1 each 09/04/20 10:23 Consult Rx Perform Med Rec MISCELLANE ONCE PRN Consult order Sertraline HCl 50 mg 09/05/20 09:00 09/05/20 08:23 Sertraline Hcl 50 Mg Tablet PO 50 mg DAILY [facility] Administration Sodium Chloride 3 ml 09/04/20 18:18 09/05/20 08:34 0.9 % Sodium Chloride Flush 3 Ml Syringe IVFLUSH Not Given QSHIFT [facility] Tamsulosin HCl 0.4 mg 09/05/20 21:00 Tamsulosin Hcl 0.4 Mg Capsule PO BEDTIME [facility] Trazodone HCl 50 mg 09/05/20 21:00 Trazodone Hcl 50 Mg Tablet PO BEDTIME [facility] Home Medications Medication Instructions Recorded Confirmed Last Taken Type calcium carbonate 1 tab PO TID 09/04/20 09/04/20 Unknown History carvedilol 25 mg PO BID 09/04/20 09/04/20 Unknown History dulaglutide [Trulicity] 1 mg SUBCUT QWEEK 09/04/20 09/04/20 Unknown History ergocalciferol (vitamin D2) 1 cap PO QWEEK 09/04/20 09/04/20 Unknown History ibuprofen 400 mg PO Q6H PRN 09/04/20 09/04/20 Unknown History insulin glargine [Lantus Solostar 20 unit SUBCUT BEDTIME 09/04/20 09/04/20 Unknown History U-100 Insulin] magnesium hydroxide [Milk of 30 ml PO DAILY PRN 09/04/20 09/04/20 Unknown History Magnesia] nifedipine 60 mg PO DAILY 09/04/20 09/04/20 Unknown History rosuvastatin 20 mg PO BEDTIME 09/04/20 09/04/20 Unknown History sertraline 50 mg PO DAILY 09/04/20 09/04/20 Unknown History tamsulosin 0.4 mg PO BEDTIME 09/04/20 09/04/20 Unknown History trazodone 50 mg PO BEDTIME 09/04/20 09/04/20 Unknown History Physical Exam Vital Signs: Last Vital Signs Temp 98.5 F 09/05/20 08:00 Pulse 79 09/05/20 09:25 Resp 16 09/05/20 08:00 BP 139/72 09/05/20 09:25 Pulse Ox 97 09/05/20 08:00 Body Mass Index 25.0 Const General: no acute distress Neck Neck: Yes supple Resp Auscultation: diminished lung sounds Cardio Jugular venous distension: no JVD GI Palpation (GI): Soft to palpation Neuro General: moves all extremities Results Lab Results Result Diagrams: 09/04/20 06:05 09/04/20 06:05 Lab results: Chemistry 09/04/20 06:05 Sodium 138 Potassium 3.9 D Carbon Dioxide 26 BUN 34 H D Creatinine 7.03 H* Calcium 7.8 L D Hematology 09/04/20 06:05 WBC 7.0 Hgb 8.7 L Plt Count 156 L Assessment and Plan (1) ESRD (end stage renal disease): Status: Acute Usually gets HD on TTS ( [facility]) Was dialyzed yesterday; Renal Diet Phos binders with meals Has anemia of Chronic diease Could get Procrit [id number] U TTS Next HD tomorrow. Shall follow along Procedures Date of Service Date of Service: 09/05/20
[2020-09-05 11:12] LABS: Glucose, Whole Blood 147 mg/dL (60-115)
--- NOTE | 2020-09-05 12:07 | HO.PM.IMPN ---
Subjective Subjective Date of Service: 09/05/20 Interval History: Seen and examined this morning Resting in bed, initially reported feeling lightheaded. No complaints this morning. Denies any recent changes in appetite or diabetic medication. Review of Systems Review of Systems: Yes all other systems are reviewed and are negative Constitutional Constitutional: Denies chills and Denies fever(s) Cardiovascular Cardiovascular: Denies chest pain Respiratory Respiratory: Denies cough Gastrointestinal Gastrointestinal: Denies abdominal pain Physical Exam Vital Signs: Vital Signs: Last Vital Signs Temp 98.2 F 09/05/20 11:42 Pulse 79 09/05/20 11:42 Resp 16 09/05/20 11:42 BP 138/70 09/05/20 11:42 Pulse Ox 97 09/05/20 11:42 Body Mass Index 25.0 Const: General: alert Nutritional Appearance: well nourished HENMT: Head: Yes normocephalic and Yes atraumatic Eyes: Sclerae: sclerae normal Chest: Chest palpation & inspection: normal inspection of the chest Resp: Effort & Inspection: normal respiratory effort and no respiratory distress Cardio: Rate: regular rate Rhythm: regular rhythm GI: Palpation (GI): Soft to palpation and nontender Neuro: Cranial nerves: Yes CN's II-XII intact bilaterally and Yes Bilaterally intact EOM present Objective Data Current Medications Generic Name Dose Route Start Last Admin Trade Name Freq PRN Reason Stop Dose Admin Acetaminophen 650 mg 09/04/20 18:18 Acetaminophen 325 Mg Tablet PO Q6H PRN Pain, Mild (Pain Scale 1-3) Atorvastatin Calcium 80 mg 09/05/20 09:00 09/05/20 08:34 Atorvastatin Calcium 80 Mg Tablet PO 80 mg DAILY [facility] Administration Carvedilol 25 mg 09/05/20 09:00 09/05/20 08:23 Carvedilol 12.5 Mg Tablet PO 25 mg BID [facility] Administration Protocol Heparin Sodium (Porcine) 5,000 unit 09/04/20 16:45 09/04/20 18:31 Heparin Sodium,Porcine 5,000 Unit/Ml Vial INTRACATH Not Given [facility]@3083 [facility] Nifedipine 60 mg 09/05/20 09:00 09/05/20 08:34 Nifedipine Er 60 Mg Tab.Er.24 PO 60 mg DAILY [facility] Administration Pharmacy Consult 1 each 09/04/20 10:23 Consult Rx Perform Med Rec MISCELLANE ONCE PRN Consult order Sertraline HCl 50 mg 09/05/20 09:00 09/05/20 08:23 Sertraline Hcl 50 Mg Tablet PO 50 mg DAILY [facility] Administration Sodium Chloride 3 ml 09/04/20 18:18 09/05/20 08:34 0.9 % Sodium Chloride Flush 3 Ml Syringe IVFLUSH Not Given QSHIFT [facility] Tamsulosin HCl 0.4 mg 09/05/20 21:00 Tamsulosin Hcl 0.4 Mg Capsule PO BEDTIME [facility] Trazodone HCl 50 mg 09/05/20 21:00 Trazodone Hcl 50 Mg Tablet PO BEDTIME [facility] Labs CBC & Chem 7: 09/04/20 06:05 09/04/20 06:05 Assessment and Plan (1) Hypoglycemia: Status: Acute (2) ESRD (end stage renal disease): Status: Acute Assessment and Plan: This is a 54 yo M with a PMH of ESRD, DM on insulin, HTN, reported recent CVA who presents was found to be unresponsive at [facility]. He was noted to be severely hypoglycemic in the ED which initially improved, but started to drop again and as such he is being admitted. 1. Diabetes with Symptomatic hypoglycemia Received D50 x 1 in the ED and subsequently started on D10 infusion. Despite the D10 infusion, his sugars continued to drop. He is on long-acting insulin at [facility] and also weekly Triseba, pt reports no dose adjustments recently -Blood sugar has remained stable. will d/c d10 drip and monitor off drip -will continue to hold Lantus, Trulicity -likely discharge on sliding scale, can resume home med as outpatient as needed 2. ESRD on HD - TTHS. Dialysis on 09/04 nephrology consult, dialysis per their recs -will need procrit 20,000 on 09/06 per nephro 3. HTN Under better control this am. -continue home medications 4. Recent hemorrhagic CVA continue statin 5. Anemia likely of chronic disease h/h appears to be at about his baseline -will need procrit tomorrow as aboe monitor 6. mood continue sertraline 7. bph continue tamsulosin continue other baseline meds Full Code DVT pptx, low risk -- will use mechanical and early ambulation
[2020-09-05 13:54] LABS: Glucose, Whole Blood 159 mg/dL (60-115)
[2020-09-05] MEDS: Calcium Carbonate 750 MG TAB.CHEW PO ×2 (16:19→20:34)
[2020-09-05] MEDS: 0.9 % Sodium Chloride Flush 3 ML SYRINGE IVFLUSH ×2 (16:20→20:29)
[2020-09-05 16:36] LABS: Glucose, Whole Blood 169 mg/dL (60-115)
[2020-09-05] MEDS: Tamsulosin HCL 0.4 MG CAPSULE PO (20:20)
[2020-09-05] MEDS: traZODone HCL 50 MG TABLET PO (20:21)
[2020-09-05 20:57] LABS: Glucose, Whole Blood 161 mg/dL (60-115)
[2020-09-06] VITALS (7 sets, daily range): BP systolic 133–187; BP diastolic 68–88; PULSE 79–88; RESP 15–18; TEMP 36.4–36.9; O2SAT 94–98
[2020-09-06 08:01] LABS: Glucose, Whole Blood 100 mg/dL (60-115)
[2020-09-06] MEDS: Calcium Carbonate 750 MG TAB.CHEW PO ×3 (10:28→21:03)
[2020-09-06] MEDS: 0.9 % Sodium Chloride Flush 3 ML SYRINGE IVFLUSH ×3 (10:28→21:04)
[2020-09-06] MEDS: Sertraline HCL 50 MG TABLET PO (10:28)
[2020-09-06] MEDS: Atorvastatin Calcium 80 MG TABLET PO (10:28)
--- NOTE | 2020-09-06 11:08 | P.PNIM_ITS ---
Subjective Subjective Date of Service: 09/06/20 <Kathryn Palomo NP - Last Filed: 09/06/20 15:04> 09/06/20 <Issa Herrera MD - Last Filed: 09/06/20 17:47> Interval History: Seen and examined this morning Resting in bed, no acute complaints <Kathryn Palomo NP - Last Filed: 09/06/20 15:04> Physical Exam Vital Signs: Vital Signs: Last Vital Signs Temp 98.1 F 09/06/20 07:46 Pulse 79 09/06/20 07:46 Resp 18 09/06/20 07:46 BP 149/75 H 09/06/20 07:46 Pulse Ox 96 09/06/20 07:46 Body Mass Index 25.0 <Kathryn Palomo NP - Last Filed: 09/06/20 15:04> Appearing in no acute distress lung sounds are clear to auscultation heart regular rate rhythm, clear S1, S2 positive bowel sounds, abdomen is soft, nontender neuro patient is alert x3, no focal deficits <Kathryn Palomo NP - Last Filed: 09/06/20 15:04> Objective Data Current Medications Generic Name Dose Route Start Last Admin Trade Name Freq PRN Reason Stop Dose Admin Acetaminophen 650 mg 09/04/20 18:18 Acetaminophen 325 Mg Tablet PO Q6H PRN Pain, Mild (Pain Scale 1-3) Atorvastatin Calcium 80 mg 09/05/20 09:00 09/06/20 10:28 Atorvastatin Calcium 80 Mg Tablet PO 80 mg DAILY [facility] Administration Calcium Carbonate 750 mg 09/05/20 21:00 09/06/20 10:28 Calcium Carbonate 750 Mg Tab.Chew PO 750 mg TID [facility] Administration Carvedilol 25 mg 09/05/20 09:00 09/06/20 10:29 Carvedilol 12.5 Mg Tablet PO Not Given BID [facility] Protocol Heparin Sodium (Porcine) 5,000 unit 09/04/20 16:45 09/04/20 18:31 Heparin Sodium,Porcine 5,000 Unit/Ml Vial INTRACATH Not Given [facility]@1645 [facility] Nifedipine 60 mg 09/05/20 09:00 09/06/20 10:29 Nifedipine Er 60 Mg Tab.Er.24 PO Not Given DAILY [facility] Pharmacy Consult 1 each 09/04/20 10:23 Consult Rx Perform Med Rec MISCELLANE ONCE PRN Consult order Sertraline HCl 50 mg 09/05/20 09:00 09/06/20 10:28 Sertraline Hcl 50 Mg Tablet PO 50 mg DAILY [facility] Administration Sodium Chloride 3 ml 09/04/20 18:18 09/06/20 10:28 0.9 % Sodium Chloride Flush 3 Ml Syringe IVFLUSH 3 ml QSHIFT [facility] Administration Tamsulosin HCl 0.4 mg 09/05/20 21:00 09/05/20 20:20 Tamsulosin Hcl 0.4 Mg Capsule PO 0.4 mg BEDTIME [facility] Administration Trazodone HCl 50 mg 09/05/20 21:00 09/05/20 20:21 Trazodone Hcl 50 Mg Tablet PO 50 mg BEDTIME [facility] Administration <Kathryn Palomo NP - Last Filed: 09/06/20 15:04> Labs CBC & Chem 7: : 09/04/20 06:05 09/04/20 06:05 <Kathryn Palomo NP - Last Filed: 09/06/20 15:04> Assessment and Plan (1) Hypoglycemia: Status: Acute <Kathryn Palomo NP - Last Filed: 09/06/20 15:04> (2) ESRD (end stage renal disease): Status: Acute <Kathryn Palomo NP - Last Filed: 09/06/20 15:04> Assessment and Plan: This is a 54 yo M with a PMH of ESRD, DM on insulin, HTN, reported recent CVA who presents was found to be unresponsive at [facility]. He was noted to be severely hypoglycemic in the ED which initially improved, but started to drop again and as such he is being admitted. Diabetes with Symptomatic hypoglycemia Received D50 x 1 in the ED and subsequently started on D10 infusion. Despite the D10 infusion, his sugars continued to drop. He is on long-acting insulin at [facility] and also weekly Triseba, pt reports no dose adjustments recently -Blood sugar has remained stable. -continue to hold Lantus, Trulicity -likely discharge on sliding scale, can resume home med as outpatient as needed ESRD on HD - TTHS. nephrology consult, dialysis per their rec -procrit 20,000 weekly, first dose today HTN Under better control this am. -continue home medications Recent hemorrhagic CVA continue statin Anemia likely of chronic disease h/h appears to be at about his baseline -will need procrit tomorrow as above monitor Mood continue sertraline BPH continue tamsulosin DISPO: Back to STR when medically stable. Likely Tuesday due to dialysis DVT prophylaxis with mechanical compression boots Full Code Attending: Dr. Herrera <Kathryn Palomo NP - Last Filed: 09/06/20 15:04>
[2020-09-06 11:26] LABS: Glucose, Whole Blood 138 mg/dL (60-115)
--- NOTE | 2020-09-06 11:27 | P.EN_ITS ---
Event Note Date of Service: 09/06/20 Event Note: patient seen and examined independently agree with APC history, ph ysical, assessment, and plan 54M presented with metabolic encephalopathy due to hypoglycemia monitor off d10
--- NOTE | 2020-09-06 13:31 | PM.PNNEP ---
Subjective Subjective Date of Service: 09/06/20 Interval history: Seen and examined this morning Resting in bed, no acute complaints Pt seen on HD Physical Exam Vital Signs: Vital Signs: Last Vital Signs Temp 97.5 F 09/06/20 11:19 Pulse 88 09/06/20 11:19 Resp 18 09/06/20 11:19 BP 150/73 H 09/06/20 11:19 Pulse Ox 94 09/06/20 11:19 Body Mass Index 25.0 Const: General: cooperative and comfortable Orientation/consciousness: oriented to person, oriented to place, oriented to time and patient oriented x3 HENMT: Head: Yes normal to inspection Eyes: Pupils: Equal, round and reactive pupils present Neck: Neck: Yes normal visual inspection Chest: Chest palpation & inspection: normal inspection of the chest Resp: Effort & Inspection: normal respiratory effort Cardio: Jugular venous distension: no JVD Rate: regular rate Heart sounds: S1 normal heart sound present and S2 normal heart sound present GI: Inspection: Yes normal to inspection Palpation (GI): Soft to palpation Auscultation: normal bowel sounds Neuro: General: oriented to person, oriented to place, oriented to time, patient oriented x3 and no focal motor deficits Cranial nerves: Yes Equal, round and reactive pupils present Objective Data Labs CBC & Chem 7: 09/04/20 06:05 09/04/20 06:05 Labs: Laboratory Results - last 24 hr 09/05/20 09/05/20 09/05/20 13:50 16:32 20:48 POC Glucose 159 H 169 H 161 H 09/06/20 09/06/20 07:28 11:17 POC Glucose 100 138 H Assessment & Plan Time Spent With Patient Time: ESRD on HD BKA HTN Continue HD Vol removal as tolerated K per protocol D/w HD nursing staff Total time spent is greater than 50% in coordination of care (as documented) at patient's floor/unit and/or counseling patient: Time with patient: 15 - 24 minutes Procedures Date of Service Date of Service: 09/06/20
[2020-09-06] MEDS: Heparin Sodium,Porcine 5,000 UNIT/ML VIAL 5000 UNIT INTRACATH (16:48)
[2020-09-06 17:01] LABS: Glucose, Whole Blood 150 mg/dL (60-115)
[2020-09-06 20:29] LABS: Glucose, Whole Blood 212 mg/dL (60-115)
[2020-09-06] MEDS: traZODone HCL 50 MG TABLET PO (21:03)
[2020-09-06] MEDS: carvediloL 12.5 MG TABLET 25 MG PO (21:03)
[2020-09-06] MEDS: Tamsulosin HCL 0.4 MG CAPSULE PO (21:03)
[2020-09-07] VITALS (7 sets, daily range): BP systolic 139–188; BP diastolic 60–92; PULSE 83–95; RESP 14–18; TEMP 36.6–37; O2SAT 95–99
[2020-09-07 07:53] LABS: Glucose, Whole Blood 149 mg/dL (60-115)
[2020-09-07] MEDS: 0.9 % Sodium Chloride Flush 3 ML SYRINGE IVFLUSH ×3 (08:47→21:21)
[2020-09-07] MEDS: Atorvastatin Calcium 80 MG TABLET PO (08:47)
[2020-09-07] MEDS: carvediloL 12.5 MG TABLET 25 MG PO ×2 (08:47→21:15)
[2020-09-07] MEDS: NIFEdipine ER 60 MG TAB.ER.24 PO (08:47)
[2020-09-07] MEDS: Calcium Carbonate 750 MG TAB.CHEW PO ×2 (08:47→21:15)
[2020-09-07] MEDS: Sertraline HCL 50 MG TABLET PO (08:47)
--- NOTE | 2020-09-07 10:06 | P.PNIM_ITS ---
Subjective Subjective Date of Service: 09/07/20 <Kathryn Palomo NP - Last Filed: 09/07/20 10:16> 09/07/20 <Patricio Crespo MD - Last Filed: 09/07/20 14:51> Interval History: Seen and examined this morning Resting in bed, no acute complaints Pt seen on HD <Kathryn Palomo NP - Last Filed: 09/07/20 10:16> Physical Exam Vital Signs: Vital Signs: Last Vital Signs Temp 98.4 F 09/07/20 07:25 Pulse 95 09/07/20 07:25 Resp 18 09/07/20 07:25 BP 174/70 H 09/07/20 07:25 Pulse Ox 96 09/07/20 07:25 Body Mass Index 25.0 <Kathryn Palomo NP - Last Filed: 09/07/20 10:16> Appearing in no acute distress lung sounds are clear to auscultation heart regular rate rhythm, clear S1, S2 positive bowel sounds, abdomen is soft, nontender neuro patient is alert x3, no focal deficits <Kathryn Palomo NP - Last Filed: 09/07/20 10:16> Objective Data Current Medications Generic Name Dose Route Start Last Admin Trade Name Freq PRN Reason Stop Dose Admin Acetaminophen 650 mg 09/04/20 18:18 Acetaminophen 325 Mg Tablet PO Q6H PRN Pain, Mild (Pain Scale 1-3) Atorvastatin Calcium 80 mg 09/05/20 09:00 09/07/20 08:47 Atorvastatin Calcium 80 Mg Tablet PO 80 mg DAILY NUVIA Administration Calcium Carbonate 750 mg 09/05/20 21:00 09/07/20 08:47 Calcium Carbonate 750 Mg Tab.Chew PO 750 mg TID NUVIA Administration Carvedilol 25 mg 09/05/20 09:00 09/07/20 08:47 Carvedilol 12.5 Mg Tablet PO 25 mg BID NUVIA Administration Protocol Heparin Sodium (Porcine) 5,000 unit 09/04/20 16:45 09/06/20 16:48 Heparin Sodium,Porcine 5,000 Unit/Ml Vial INTRACATH 5,000 unit [email or web address]@[id number] NUVIA Administration Nifedipine 60 mg 09/05/20 09:00 09/07/20 08:47 Nifedipine Er 60 Mg Tab.Er.24 PO 60 mg DAILY NUVIA Administration Pharmacy Consult 1 each 09/04/20 10:23 Consult Rx Perform Med Rec MISCELLANE ONCE PRN Consult order Sertraline HCl 50 mg 09/05/20 09:00 09/07/20 08:47 Sertraline Hcl 50 Mg Tablet PO 50 mg DAILY NUVIA Administration Sodium Chloride 3 ml 09/04/20 18:18 09/07/20 08:47 0.9 % Sodium Chloride Flush 3 Ml Syringe IVFLUSH 3 ml QSHIFT NUVIA Administration Tamsulosin HCl 0.4 mg 09/05/20 21:00 09/06/20 21:03 Tamsulosin Hcl 0.4 Mg Capsule PO 0.4 mg BEDTIME NUVIA Administration Trazodone HCl 50 mg 09/05/20 21:00 09/06/20 21:03 Trazodone Hcl 50 Mg Tablet PO 50 mg BEDTIME NUVIA Administration <Kathryn Palomo NP - Last Filed: 09/07/20 10:16> Labs CBC & Chem 7: : 09/04/20 06:05 09/04/20 06:05 <Kathryn Palomo NP - Last Filed: 09/07/20 10:16> Assessment and Plan (1) Hypoglycemia: Status: Acute <Kathryn Palomo NP - Last Filed: 09/07/20 10:16> (2) ESRD (end stage renal disease): Status: Acute <Kathryn Palomo NP - Last Filed: 09/07/20 10:16> Assessment and Plan: This is a 54 yo M with a PMH of ESRD, DM on insulin, HTN, reported recent CVA who presents was found to be unresponsive at [facility]. He was noted to be severely hypoglycemic in the ED which initially improved, but started to drop a gain and as such he is being admitted. ESRD on HD - TTHS. nephrology consult, dialysis per their rec -procrit 20,000 weekly, first dose today HTN. Uncontrolled. -add low dose HCTZ -follow BP closely Diabetes with Symptomatic hypoglycemia. Baseline Received D50 x 1 in the ED and subsequently started on D10 infusion. Despite the D10 infusion, his sugars continued to drop. He is on long-acting insulin at [facility] and also weekly Triseba, pt reports no dose adjustments recently -Blood sugar has remained stable. -continue to hold Lantus, Trulicity -Add sliding scale -likely discharge on sliding scale, can resume home med as outpatient as needed Recent hemorrhagic CVA continue statin Anemia likely of chronic disease h/h appears to be at about his baseline -will need procrit tomorrow as above monitor Mood continue sertraline BPH continue tamsulosin DISPO: Back to STR when medically stable. Likely Tuesday due to dialysis DVT prophylaxis with mechanical compression boots Full Code Attending: Dr. Crespo <Kathryn Palomo NP - Last Filed: 09/07/20 10:16> Addendum to documentation by midlevel I saw and examined the patient and participated in the harry portion of the E/M service. I agree with finding, asssessment and plan as mentioned above. He is admitted with hypoglycemia in setting of ESRD, hypoglycemia has resolved. He is awaiting discharge to a facility up. Otherwise, I agree with assessment and plan as outlined above. <Patricio Crespo MD - Last Filed: 09/07/20 14:51>
[2020-09-07] MEDS: hydroCHLOROthiazide 12.5 MG TABLET PO (11:07)
[2020-09-07 11:46] LABS: Glucose, Whole Blood 190 mg/dL (60-115)
--- NOTE | 2020-09-07 13:01 | P.PNNP_ITS ---
Subjective Subjective Date of Service: 09/07/20 Interval history: Seen and examined this morning Resting in bed He has complaints of poor appetite Physical Exam Vital Signs: Vital Signs: Last Vital Signs Temp 98.6 F 09/07/20 11:26 Pulse 91 09/07/20 11:26 Resp 16 09/07/20 11:26 BP 167/78 H 09/07/20 11:26 Pulse Ox 95 09/07/20 11:26 Body Mass Index 25.0 Const: General: cooperative, no acute distress and other (sleepy ) Nutritional Appearance: malnourished Orientation/consciousness: oriented to person, oriented to place, oriented to time and patient oriented x3 HENMT: Head: Yes normal to inspection, Yes normocephalic and Yes atraumatic Eyes: Sclerae: sclerae normal Pupils: Equal, round and reactive pupils p resent Neck: Neck: Yes normal visual inspection and Yes supple Chest: Chest palpation & inspection: normal inspection of the chest Resp: Effort & Inspection: normal respiratory effort, able to speak in complete sentences and no respiratory distress Auscultation: diminished lung sounds Cardio: Jugular venous distension: no JVD Rate: regular rate Rhythm: regular rhythm Heart sounds: S1 normal heart sound present and S2 normal heart sound present GI: Inspection: Yes normal to inspection Palpation (GI): Soft to palpation and nontender Auscultation: normal bowel sounds Neuro: General: oriented to person, oriented to place, oriented to time, patient oriented x3, moves all extremities and no focal motor deficits Cranial nerves: Yes CN's II-XII intact bilaterally, Yes Equal, round and reactive pupils present and Yes Bilaterally intact EOM present Objective Data Labs CBC & Chem 7: 09/04/20 06:05 09/04/20 06:05 Labs: Laboratory Results - last 24 hr 09/06/20 09/06/20 09/07/20 16:57 20:25 07:24 POC Glucose 150 H 212 H 149 H 09/07/20 11:29 POC Glucose 190 H Assessment & Plan Assessment and plan (1) Hypoglycemia: Status: Acute (2) ESRD (end stage renal disease): Status: Acute Assessment and Plan: This is a 54 yo M with a PMH of ESRD, DM on insulin, HTN, reported recent CVA who presents was found to be unresponsive at SNF. He was noted to be severely hypoglycemic 1. ESRD- on HD - TTHS. Last HD yesterday -procrit 20,000 weekly, first dose today 2. HTN.Better Controlled . D/c HCTZ - Does not work in hd pts Suggest Losartan 25 mh with increase as needed Follow BP closely 3. Diabetes with Symptomatic hypoglycemia. Baseline 4. Recent hemorrhagic CVA continue statin 5.Anemia - Epo defeciancy h/h appears to be at about his baseline Epo as ordered Mood DISPO: Back to STR when medically stable. Likely Tuesday Time Spent With Patient Time: Total time spent is greater than 50% in coordination of care (as documented) at patient's floor/unit and/or counseling patient: Procedures Date of Service Date of Service: 09/07/20
[2020-09-07 16:33] LABS: Glucose, Whole Blood 144 mg/dL (60-115)
[2020-09-07 20:31] LABS: Glucose, Whole Blood 192 mg/dL (60-115)
[2020-09-07] MEDS: traZODone HCL 50 MG TABLET PO (21:15)
[2020-09-07] MEDS: hydrALAZINE HCl 10 MG TABLET PO (21:16)
[2020-09-07] MEDS: Tamsulosin HCL 0.4 MG CAPSULE PO (21:16)
[2020-09-07] MEDS: Insulin Lispro 100 UNIT/ML 3 ML VIAL SUBCUT (21:19)
[2020-09-08] VITALS: BP 146/74; PULSE 82; RESP 18; TEMP 36.6; O2SAT 95
[2020-09-08 03:33] VITALS: BP 156/72; PULSE 85; RESP 19; TEMP 37.1; O2SAT 96
[2020-09-08 06:30] LABS: Anion Gap 15 (12-20); Blood Urea Nitrogen 41 mg/dL (9-16); Calcium 7.9 mg/dL (8.4-10.2); Carbon Dioxide 22 mmol/L (22-29); Chloride 103 mmol/L (96-108); Glucose Random 118 mg/dL (60-115); Potassium 3.7 mmol/L (3.3-5.1); Sodium 136 mmol/L (135-145)
[2020-09-08 06:32] LABS: Creatinine Clr Calc Pharmacy 12.8; Estimated Glomerular Filt Rate 10
[2020-09-08 07:36] VITALS: BP 135/58; PULSE 85; RESP 17; TEMP 36.9; O2SAT 91
[2020-09-08 07:44] LABS: Glucose, Whole Blood 114 mg/dL (60-115)
[2020-09-08] MEDS: carvediloL 12.5 MG TABLET 25 MG PO ×2 (08:37→20:34)
[2020-09-08] MEDS: 0.9 % Sodium Chloride Flush 3 ML SYRINGE IVFLUSH ×3 (08:37→20:36)
[2020-09-08] MEDS: Calcium Carbonate 750 MG TAB.CHEW PO ×3 (08:38→20:34)
[2020-09-08] MEDS: hydrALAZINE HCl 10 MG TABLET PO ×3 (08:38→20:33)
[2020-09-08] MEDS: Atorvastatin Calcium 80 MG TABLET PO (08:38)
[2020-09-08] MEDS: NIFEdipine ER 60 MG TAB.ER.24 PO (08:38)
[2020-09-08] MEDS: Sertraline HCL 50 MG TABLET PO (08:38)
--- NOTE | 2020-09-08 08:46 | MHC.CM.PN ---
at this time DC plan is for patient to trnfr to [facility] at [place]. cm to cont. to follow.
[2020-09-08 11:35] VITALS: BP 126/81; PULSE 81; RESP 16; TEMP 36.4; O2SAT 92
[2020-09-08 11:41] LABS: Glucose, Whole Blood 156 mg/dL (60-115)
[2020-09-08] MEDS: Insulin Lispro 100 UNIT/ML 3 ML VIAL SUBCUT ×2 (11:49→16:28)
--- NOTE | 2020-09-08 11:53 | P.PNIM_ITS ---
Subjective Subjective Date of Service: 09/08/20 <Kathryn Palomo NP - Last Filed: 09/08/20 11:57> 09/08/20 <Patricio Crespo MD - Last Filed: 09/08/20 13:31> Interval History: Seen and examined this morning Resting in bed He has complaints of poor appetite <Kathryn Palomo NP - Last Filed: 09/08/20 11:57> Physical Exam Vital Signs: Vital Signs: Last Vital Signs Temp 97.5 F 09/08/20 11:35 Pulse 81 09/08/20 11:35 Resp 16 09/08/20 11:35 BP 126/81 09/08/20 11:35 Pulse Ox 92 09/08/20 11:35 Body Mass Index 25.0 <Kathryn Palomo NP - Last Filed: 09/08/20 11:57> Appearing in no acute distress lung sounds are clear to auscultation heart regular rate rhythm, clear S1, S2 positive bowel sounds, abdomen is soft, nontender neuro patient is alert x3, no focal deficits <Kathryn Palomo NP - Last Filed: 09/08/20 11:57> Objective Data Current Medications Generic Name Dose Route Start Last Admin Trade Name Freq PRN Reason Stop Dose Admin Acetaminophen 650 mg 09/04/20 18:18 Acetaminophen 325 Mg Tablet PO Q6H PRN Pain, Mild (Pain Scale 1-3) Atorvastatin Calcium 80 mg 09/05/20 09:00 09/08/20 08:38 Atorvastatin Calcium 80 Mg Tablet PO 80 mg DAILY NUVIA Administration Calcium Carbonate 750 mg 09/05/20 21:00 09/08/20 08:38 Calcium Carbonate 750 Mg Tab.Chew PO 750 mg TID NUVIA Administration Carvedilol 25 mg 09/05/20 09:00 09/08/20 08:37 Carvedilol 12.5 Mg Tablet PO 25 mg BID NUVIA Administration Protocol Heparin Sodium (Porcine) 5,000 unit 09/04/20 16:45 09/06/20 16:48 Heparin Sodium,Porcine 5,000 Unit/Ml Vial INTRACATH 5,000 unit [facility]@[id number] NUVIA Administration Hydralazine HCl 10 mg 09/07/20 21:00 09/08/20 08:38 Hydralazine Hcl 10 Mg Tablet PO 10 mg TID NUVIA Administration Protocol Insulin Human Lispro 0 unit 09/07/20 11:30 09/08/20 11:49 Insulin Lispro 100 Unit/Ml 3 Ml Vial SUBCUT 2 unit QIDACHS NUVIA Administration Protocol Nifedipine 60 mg 09/05/20 09:00 09/08/20 08:38 Nifedipine Er 60 Mg Tab.Er.24 PO 60 mg DAILY NUVIA Administration Pharmacy Consult 1 each 09/04/20 10:23 Consult Rx Perform Med Rec MISCELLANE ONCE PRN Consult order Sertraline HCl 50 mg 09/05/20 09:00 09/08/20 08:38 Sertraline Hcl 50 Mg Tablet PO 50 mg DAILY NUVIA Administration Sodium Chloride 3 ml 09/04/20 18:18 09/08/20 08:37 0.9 % Sodium Chloride Flush 3 Ml Syringe IVFLUSH 3 ml QSHIFT NUVIA Administration Tamsulosin HCl 0.4 mg 09/05/20 21:00 09/07/20 21:16 Tamsulosin Hcl 0.4 Mg Capsule PO 0.4 mg BEDTIME NUVIA Administration Trazodone HCl 50 mg 09/05/20 21:00 09/07/20 21:15 Trazodone Hcl 50 Mg Tablet PO 50 mg BEDTIME NUVIA Administration <Kathryn Palomo NP - Last Filed: 09/08/20 11:57> Labs CBC & Chem 7: : 09/04/20 06:05 09/08/20 05:38 <Kathryn Palomo NP - Last Filed: 09/08/20 11:57> Assessment and Plan (1) ESRD (end stage renal disease): Status: Acute <Kathryn Palomo NP - Last Filed: 09/08/20 11:57> Assessment and Plan: This is a 54 yo M with a PMH of ESRD, DM on insulin, HTN, reported recent CVA who presents was found to be unresponsive at [facility]. He was noted to be severely hypoglycemic in the ED which initially improved, but started to drop again and as such he is being admitted. ESRD on HD - TTHS. nephrology consult, dialysis per their rec -procrit 20,000 weekly, first dose today HTN. Uncontrolled. -hydralazine added -follow BP closely Diabetes with Symptomatic hypoglycemia. Baseline Received D50 x 1 in the ED and subsequently started on D10 infusion. Despite the D10 infusion, his sugars continued to drop. He is on long-acting insulin at SNF and also weekly Triseba, pt reports no dose adjustments recently -Blood sugar has remained stable. -continue to hold Lantus, Trulicity -Add sliding scale -likely discharge on sliding scale, can resume home med as outpatient as needed Recent hemorrhagic CVA continue statin Anemia likely of chronic disease h/h appears to be at about his baseline -Procrit weekly monitor Mood continue sertraline BPH continue tamsulosin DISPO: Back to STR likely tomorrow. DVT prophylaxis with mechanical compression boots Full Code Attending: Dr. Crespo <Kathryn Palomo NP - Last Filed: 09/08/20 11:57>
--- NOTE | 2020-09-08 11:55 | PM.DS ---
DS: Providers Provider Date of Service: 09/09/20 <Kathryn Palomo NP - Last Filed: 09/09/20 18:27> Date of admission: 09/04/20 11:31 <Kathryn Palomo NP - Last Filed: 09/09/20 18:27> Date of discharge: 09/09/20 <Kathryn Palomo NP - Last Filed: 09/09/20 18:27> Primary care physician: Daniel Campos MD <Kathryn Palomo NP - Last Filed: 09/09/20 18:27> Admitting clinician: Amor Jiang <Kathryn Palomo NP - Last Filed: 09/09/20 18:27> Attending physician on admission: Amor Jiang <Kathryn Palomo NP - Last Filed: 09/09/20 18:27> Consults: 09/04/20 11:43 Consult to Nephrology Routine Consulting Provider: Dayne Marr Reason for consultation: ESRD TTHS, due for dialysis today <Kathryn Palomo NP - Last Filed: 09/09/20 18:27> Attending physician on discharge: Cristobal Crespo <Kathryn Palomo NP - Last Filed: 09/09/20 18:27> Discharging clinician: Kathryn Palomo <Kathryn Palomo NP - Last Filed: 09/09/20 18:27> DS: Diagnosis Discharge Diagnosis (1) Hypoglycemia: Status: Acute <Kathryn Palomo NP - Last Filed: 09/09/20 18:27> (2) Hypertension: Status: Acute <Kathryn Palomo NP - Last Filed: 09/09/20 18:27> (3) ESRD (end stage renal disease): Status: Acute <Kathryn Palomo NP - Last Filed: 09/09/20 18:27> DS: Medications Discharge Medications Home Medications: Home Medications Medication Instructions Recorded Confirmed calcium carbonate 1 tab PO TID 09/04/20 09/04/20 carvedilol 25 mg PO BID 09/04/20 09/04/20 dulaglutide [Trulicity] 1 mg SUBCUT QWEEK 09/04/20 09/04/20 ergocalciferol (vitamin D2) 1 cap PO QWEEK 09/04/20 09/04/20 ibuprofen 400 mg PO Q6H PRN 09/04/20 09/04/20 insulin glargine [Lantus Solostar 20 unit SUBCUT BEDTIME 09/04/20 09/04/20 U-100 Insulin] magnesium hydroxide [Milk of 30 ml PO DAILY PRN 09/04/20 09/04/20 Magnesia] nifedipine 60 mg PO DAILY 09/04/20 09/04/20 rosuvastatin 20 mg PO BEDTIME 09/04/20 09/04/20 sertraline 50 mg PO DAILY 09/04/20 09/04/20 tamsulosin 0.4 mg PO BEDTIME 09/04/20 09/04/20 trazodone 50 mg PO BEDTIME 09/04/20 09/04/20 <Kathryn Palomo OXYGEN EQUIPMENT TECHNICIAN - Last Filed: 09/09/20 18:27> DS: Summary Hospital Course Hospital Course: From H&P 09/04 This is a 54 year old male With a past medical history of diabetes mellitus on insulin, end-stage renal disease on dialysis Tuesday, anemia, hypertension, CVA with recent hospitalization to [facility] for reported history, major depressive disorder, hyperlipidemia, vertigo who presented to [facility]'s Emergency Room brought in by ambulance from [facility] due to unresponsiveness. The patient himself does not have any recollection of the events that have transpired over the roughly last 12 hours and so history is obtained from school based therapist notes and ED provider documentation. It appears that patient was found in an unresponsive/minimally responsive state at the correction facility at which point paramedics were called. Per EMS records, upon arrival to the correction facility the patient was groaning and beginning to pop sure. His pupils were nonreactive and patient was diaphoretic. Reportedly he had gone to bed around 23:00 without any issues. A point of care was checked and revealed to be 21. He was placed and he was administered D10 through the IV, 15 g initially. Initially his sugars improved to 153 only to be subsequently down trending to 73. As the patient's sugars improved so did his mental status but he remained not at baseline. Upon arrival to the ED was noted to be 50. This subsequently improved to 237 but within 15 minutes his sugars dropped down to 78. He was given a 2nd dose of D50 and D10 infusion was administered and admission was requested. At the time that I was seen the patient he is awake and alert but reports being very sleepy and tired. He reports eating a his normal meal yesterday. His sugars on the D10 drip which had remained in the 130 range are now beginning to decrease to the 90s. Patient will be admitted for symptomatic hypoglycemia. Symptomatic hypoglycemia Patient's Trulicity and Lantus were held on admission. He was continued on D10 drip. His blood sugar was checked Q 2 hours. Blood sugar remained under 100 until around 20:00 and then began rebounding and remained stable overnight, there were no recurrent episodes of hypoglycemia. This morning his D10 drip was discontinued. He is tolerating a full diabetic diet and his blood sugars have remained stable off of d10 drip. It is unclear what precipitated his hypoglycemia as the patient reports no change in his diet or dose of medications. Trulicity and Lantus will be held on discharge. Blood sugar should be monitored with meals and at bedtime. Use a sliding scale for coverage. lantus and trulicity can be re-introduced as needed. Hypertension. Uncontrolled. Hydralazine added TID for better blood pressure control. ESRD. Continue Dialysis T, , Sa. <Kathryn Palomo NP - Last Filed: 09/09/20 18:27> Time Spent with Patient Time attestation: Total time spent providing and/or coordinating discharge services: <Kathryn Palomo NP - Last Filed: 09/09/20 18:27> Discharge coordination time: Greater than 30 minutes <Kathryn Palomo NP - Last Filed: 09/09/20 18:27> Quality: Stroke Does the patient have a stroke diagnosis?: No <Kathryn Palomo NP - Last Filed: 09/09/20 18:27> Physical Exam Vital Signs: Vital Signs: Last Vital Signs Temp 97.5 F 09/08/20 11:35 Pulse 81 09/08/20 11:35 Resp 16 09/08/20 11:35 BP 126/81 09/08/20 11:35 Pulse Ox 92 09/08/20 11:35 Body Mass Index 25.0 <Kathryn Palomo NP - Last Filed: 09/09/20 18:27> Appearing in no acute distress head is normocephalic atraumatic eyes pupils are PERRLA sclera is anicteric mouth throat mucous membranes are intact and moist neck is supple no lymphadenopathy, no JVD noted lung sounds are clear to auscultation heart regular rate rhythm, clear S1, S2 positive bowel sounds, abdomen is soft, nontender neuro patient is alert x3, no focal deficits <Kathryn Palomo NP - Last Filed: 09/09/20 18:27> DS: Data Data Completed and Pending Labs on day of discharge: Laboratory Results - last 24 hr 09/07/20 09/07/20 09/08/20 16:28 20:27 05:38 Sodium 136 Potassium 3.7 Chloride 103 Carbon Dioxide 22 Anion Gap 15 BUN 41 H Creatinine 6.09 H* Estim Creat Clear Calc 12.8 Estimated GFR 10 POC Glucose 144 H 192 H Random Glucose 118 H D Calcium 7.9 L 09/08/20 09/08/20 07:38 11:38 Sodium Potassium Chloride Carbon Dioxide Anion Gap BUN Creatinine Estim Creat Clear Calc Estimated GFR POC Glucose 114 156 H Random Glucose Calcium <Kathryn Palomo NP - Last Filed: 09/09/20 18:27> Discharge Plan Discharge Anticipated Discharge Date/Time: 09/09/20 09:22 <Kathryn Palomo NP - Last Filed: 09/09/20 18:27> Patient Disposition: Xfer SNF <Kathryn Palomo NP - Last Filed: 09/09/20 18:27> Discharge Diagnosis: Hypoglycemia Hypertension ESRD <Kathryn Palomo NP - Last Filed: 09/09/20 18:27> Hypoglycemia Hypertension ESRD <Cristobal Crespo MD - Last Filed: 09/10/20 07:46> Referrals: [facility] [Outside] - 1 Day (SHORT TERM REHAB ) Daniel Campos MD [Primary Care Provider] - 1 Week <Kathryn Palomo NP - Last Filed: 09/09/20 18:27> Discharge Medications: New insulin lispro [Humalog U-100 Insulin] 100 unit/mL solution See Protocol sliding scale dose subcut USEASDIRECTD Qty: 10 RF: 0 hydralazine 10 mg Tablet 10 mg PO TID Qty: 90 RF: 0 Continued carvedilol 12.5 mg tablet 25 mg PO BID RF: 0 trazodone 50 mg tablet 50 mg PO BEDTIME RF: 0 calcium carbonate 600 mg calcium (1,500 mg) tablet 1 tab PO TID RF: 0 sertraline 25 mg tablet 50 mg PO DAILY RF: 0 ergocalciferol (vitamin D2) 1,250 mcg (50,000 unit) capsule 1 cap PO QWEEK RF: 0 nifedipine 60 mg tablet extended release 60 mg PO DAILY RF: 0 tamsulosin 0.4 mg Capsule 0.4 mg PO BEDTIME RF: 0 rosuvastatin 20 mg Tablet 20 mg PO BEDTIME RF: 0 magnesium hydroxide [Milk of Magnesia] 400 mg/5 mL Suspension 30 ml PO DAILY PRN (Reason: Constipation) RF: 0 Discontinued Lantus Solostar U-100 Insulin 100 unit/mL (3 mL) insulin pen 20 unit subcut BEDTIME RF: 0 Trulicity 1.5 mg/0.5 mL pen injector 1 mg subcut QWEEK RF: 0 ibuprofen 400 mg Tablet 400 mg PO Q6H PRN (Reason: Pain) RF: 0 <Kathryn Palomo NP - Last Filed: 09/09/20 18:27> Discharge Orders: Discharge Order (Routine); Ordered 09/09/20 Ordered By: Kathryn Palomo <Kathryn Palomo NP - Last Filed: 09/09/20 18:27> Diet: advance to usual diet <Kathryn Palomo NP - Last Filed: 09/09/20 18:27> advance to usual diet <Cristobal Crespo MD - Last Filed: 09/10/20 07:46> Activity on Discharge: As tolerated <Kathryn Palomo NP - Last Filed: 09/09/20 18:27> As tolerated <Cristobal Crespo MD - Last Filed: 09/10/20 07:46> Stand Alone Forms: Patient Portal Discharge page <Kathryn Palmoo NP - Last Filed: 09/09/20 18:27> Care Plan Goals: see below <Kathryn Palomo NP - Last Filed: 09/09/20 18:27> Health Concerns: Hypoglycemia Hypertension ESRD <Kathryn Palomo NP - Last Filed: 09/09/20 18:27> Plan of Treatment: Hypoglycemia - your lantus and trulicity have been stopped for now. these can slowly be reintroduced as needed. check blood sugar with meals and before bed and use sliding scale for coverage for now. Take new medications as prescribed. Follow up with your primary care provider as needed Continue dialysis as per your schedule T, TH, Sa. You received dialysis today 10/09/20 at [facility]. <Kathryn Palomo NP - Last Filed: 09/09/20 18:27> Assessment: see discharge summary I saw and examined this patient and discussed the discharge plan with OXYGEN EQUIPMENT TECHNICIAN and I agree with plan as written by OXYGEN EQUIPMENT TECHNICIAN. Patient is being discharged to [facility] --cristobal Crespo MD <Kathryn Palomo NP - Last Filed: 09/09/20 18:27> Discharge Date/Time: 09/09/20 16:05 <Kathryn Palomo NP - Last Filed: 09/09/20 18:27>
--- NOTE | 2020-09-08 14:29 | P.PNNP_ITS ---
Subjective Subjective Date of Service: 09/08/20 Interval history: Seen and examined this morning Resting in bed He has complaints of poor appetite Physical Exam Vital Signs: Vital Signs: Last Vital Signs Temp 97.5 F 09/08/20 11:35 Pulse 81 09/08/20 11:35 Resp 16 09/08/20 11:35 BP 126/81 09/08/20 11:35 Pulse Ox 92 09/08/20 11:35 Body Mass Index 25.0 Const: General: cooperative, no acute distress and other (sleepy ) Nutritional Appearance: malnourished Orientation/consciousness: oriented to person, oriented to place, oriented to time and patient oriented x3 HENMT: Head: Yes normal to inspection, Yes normocephalic and Yes atraumatic Eyes: Sclerae: sclerae normal Pupils: Equal, round and reactive pupils p resent Neck: Neck: Yes normal visual inspection and Yes supple Chest: Chest palpation & inspection: normal inspection of the chest Resp: Effort & Inspection: normal respiratory effort, able to speak in complete sentences and no respiratory distress Auscultation: diminished lung sounds Cardio: Jugular venous distension: no JVD Rate: regular rate Rhythm: regular rhythm Heart sounds: S1 normal heart sound present and S2 normal heart sound present GI: Inspection: Yes normal to inspection Palpation (GI): Soft to palpation and nontender Auscultation: normal bowel sounds Neuro: General: oriented to person, oriented to place, oriented to time, patient oriented x3, moves all extremities and no focal motor deficits Cranial nerves: Yes CN's II-XII intact bilaterally, Yes Equal, round and reactive pupils present and Yes Bilaterally intact EOM present Objective Data Labs CBC & Chem 7: 09/04/20 06:05 09/08/20 05:38 Labs: Laboratory Results - last 24 hr 09/07/20 09/07/20 09/08/20 16:28 20:27 05:38 Sodium 136 Potassium 3.7 Chloride 103 Carbon Dioxide 22 Anion Gap 15 BUN 41 H Creatinine 6.09 H* Estim Creat Clear Calc 12.8 Estimated GFR 10 POC Glucose 144 H 192 H Random Glucose 118 H D Calcium 7.9 L 09/08/20 09/08/20 07:38 11:38 Sodium Potassium Chloride Carbon Dioxide Anion Gap BUN Creatinine Estim Creat Clear Calc Estimated GFR POC Glucose 114 156 H Random Glucose Calcium Assessment & Plan Assessment and plan (1) ESRD (end stage renal disease): Status: Acute Assessment and Plan: This is a 54 yo M with a PMH of ESRD, DM on insulin, HTN, reported recent CVA who presents was found to be unresponsive at [facility]. He was noted to be severely hypoglycemic 1. ESRD- on HD - [facility]. Next HD in AM -procrit 20,000 weekly, 2. HTN.Better Controlled . Off HCTZ - Does not work in hd pts Suggest Losartan 25 mh with increase as needed if needed Follow BP closely 3. Diabetes with Symptomatic hypoglycemia. Baseline 4. Recent hemorrhagic CVA continue statin 5.Anemia - Epo defeciancy h/h appears to be at about his baseline Epo as ordered Time Spent With Patient Time: Total time spent is greater than 50% in coordination of care (as documented) at patient's floor/unit and/or counseling patient: Procedures Date of Service Date of Service: 09/08/20
[2020-09-08 14:57] VITALS: BP 98/49; PULSE 72
--- NOTE | 2020-09-08 16:06 | MHC.CM.PN ---
per pt's mother's request communication was made to [facility] to reconsider accepting patient as she would like him to go to an [facility] if possible. pls. contact, mother, georgie at ph: [phone], or email which she prefers - .[employer]. with the results from the [facility] tomorrow morning ( 09/09/20) prior to pt leaving for [facility] which is still the dc plan. if an opportunity at an [facility] opens up then georgie will take it. cm to cont. to follow.
[2020-09-08 16:25] LABS: Glucose, Whole Blood 190 mg/dL (60-115)
[2020-09-08 19:22] VITALS: BP 146/78; PULSE 82; RESP 18; TEMP 36.6; O2SAT 98
[2020-09-08] MEDS: Tamsulosin HCL 0.4 MG CAPSULE PO (20:33)
[2020-09-08 20:34] LABS: Glucose, Whole Blood 209 mg/dL (60-115)
[2020-09-08] MEDS: traZODone HCL 50 MG TABLET PO (20:36)
[2020-09-09] VITALS: BP 158/81; PULSE 84; RESP 18; TEMP 36.6; O2SAT 96
[2020-09-09 03:57] VITALS: BP 157/80; PULSE 81; RESP 18; TEMP 36.7; O2SAT 94
[2020-09-09 07:22] VITALS: BP 176/67; PULSE 83; RESP 18; TEMP 36.6; O2SAT 95
[2020-09-09 07:34] LABS: Glucose, Whole Blood 120 mg/dL (60-115)
[2020-09-09] MEDS: NIFEdipine ER 60 MG TAB.ER.24 PO (07:51)
[2020-09-09] MEDS: Calcium Carbonate 750 MG TAB.CHEW PO ×2 (07:51→15:57)
[2020-09-09] MEDS: Atorvastatin Calcium 80 MG TABLET PO (07:52)
[2020-09-09] MEDS: carvediloL 12.5 MG TABLET 25 MG PO (07:52)
[2020-09-09] MEDS: hydrALAZINE HCl 10 MG TABLET PO ×2 (07:52→15:57)
[2020-09-09] MEDS: Sertraline HCL 50 MG TABLET PO (07:53)
[2020-09-09] MEDS: 0.9 % Sodium Chloride Flush 3 ML SYRINGE IVFLUSH ×2 (07:53→15:57)
--- NOTE | 2020-09-09 10:31 | PM.PNNEP ---
Subjective Subjective Interval history: Seen during HD Physical Exam Vital Signs: Vital Signs: Last Vital Signs Temp 97.9 F 09/09/20 07:22 Pulse 83 09/09/20 07:22 Resp 18 09/09/20 07:22 BP 176/67 H 09/09/20 07:22 Pulse Ox 95 09/09/20 07:22 Body Mass Index 25.0 Const: General: cooperative Neck: Neck: Yes supple Cardio: Heart sounds: no rubs Skin: General skin exam: no jaundice Neuro: Motor exam (neuro): no asterixis Extrem: General: No clubbing Objective Data Labs CBC & Chem 7: 09/04/20 06:05 09/08/20 05:38 Labs: Laboratory Results - last 24 hr 09/08/20 09/08/20 09/08/20 11:38 16:22 20:29 POC Glucose 156 H 190 H 209 H 09/09/20 07:21 POC Glucose 120 H Assessment & Plan Assessment and plan (1) ESRD (end stage renal disease): Status: Acute Assessment and Plan: 1. ESRD- on HD - [facility] 2. HTN.Better Controlled . Follow BP closely 3. Diabetes with Symptomatic hypoglycemia. Baseline 4. Recent hemorrhagic CVA continue statin 5.Anemia - Epo defeciancy h/h appears to be at about his baseline Epo as ordered Time Spent With Patient Time: Total time spent is greater than 50% in coordination of care (as documented) at patient's floor/unit and/or counseling patient: Procedures Date of Service Date of Service: 09/09/20
[2020-09-09 13:17] VITALS: BP 176/67; PULSE 83; O2SAT 95
[2020-09-09 13:25] LABS: Glucose, Whole Blood 146 mg/dL (60-115)
[2020-09-09 13:44] VITALS: BP 144/75; PULSE 73; RESP 18; TEMP 36.1; O2SAT 97
[2020-09-09 14:06] LABS: COVID-19 Test Negative (Negative)
--- NOTE | 2020-09-09 15:09 | MHC.CM.PN ---
IMM 09/09/20, PT DISCHARGING TO [facility], ACTION FOR BLS TRANSPORT. PT'S MOTHER SERINA NOTIFIED AT 3:06PM [phone], NO ANSWER MESSAGE LEFT.
[2020-09-09 15:37] VITALS: BP 152/77; PULSE 77; RESP 16; TEMP 36.2; O2SAT 98
== END 2020-09-09 16:05 | disposition skilled nursing facility (03) | DRG 637 ==
LOC: HO.ED 07:47 → HO.EDOVER 11:40 → HO.S3 16:09
PROVIDERS: Internal Medicine; Nurse Practitioner Acute Care; Nurse Practitioner Family; Admitting Provider Family Medicine; Emergency Provider Emergency Medicine; PCP Family Medicine; Visit Provider Internal Medicine
DX: E11.649 Type 2 diabetes mellitus with hypoglycemia without coma (principal); G93.41 Metabolic encephalopathy; I12.0 Hypertensive chronic kidney disease with stage 5 chronic kidney disease or end stage renal disease; E11.22 Type 2 diabetes mellitus with diabetic chronic kidney disease; N18.6 End stage renal disease; D63.1 Anemia in chronic kidney disease; N40.0 Benign prostatic hyperplasia without lower urinary tract symptoms; F39 Unspecified mood [affective] disorder; Z99.2 Dependence on renal dialysis; Z86.73 Personal history of transient ischemic attack (TIA), and cerebral infarction without residual deficits; Z20.822 Contact with and (suspected) exposure to COVID-19; Z79.4 Long term (current) use of insulin; Z79.899 Other long term (current) drug therapy
CPT/HCPCS: 36415; 80048; 80053; 82947; 85025; 87635; 90999; 93005; 97110; 97162; 99285; J0885

== ENCOUNTER 2020-09-09 00:29 | Outpatient (REF) | payer OTHER, SELFPAY | END 2020-09-09 00:30 | disposition home or self-care (01) | LOC: HO.MMNH1L 00:29 | PROVIDERS: Visit Provider Family Medicine | DX: Z13.89 Encounter for screening for other disorder (principal) ==